=== PATIENT | female | born 1940 | race Caucasian/White ===

== ENCOUNTER 2016-09-22 12:22 | Emergency (ER) | payer MEDICARE ==
[2016-09-22 12:47] VITALS: PULSE 62
--- NOTE | 2016-09-22 14:30 | ED ---
General Adult HPI - General Chief complaint: Recheck/Abnormal Lab/Rx Stated complaint: Constipation Time Seen by Provider: 09/22/16 14:00 Source: patient, family, RN notes reviewed Mode of arrival: ambulatory Limitations: no limitations - History of Present Illness Initial comments: This is a 75-year-old female with a history of diverticulosis who presents with complaints of constipation for the last week. She states last time she had a bowel movement was very hard and small amounts. She also states she had no urine output from 9 PM last until just before I arrived to see her in the emergency department. She had no dysuria hematuria no urgency. No fevers chills sweats no abdominal pain. She states she had decreased oral intake today secondary to a fullness she feels for the constipation. She's had no prior abdominal surgeries. She voices no other concerns at this time but she does states that she was somewhat "woozy". - Related Data Home Medications Medication Instructions Recorded Confirmed Aspirin [Adult Low Dose Aspirin EC] 81 mg PO HS 07/28/15 09/22/16 Cholecalciferol [Vitamin D3] 2,000 unit PO DAILY 07/28/15 09/22/16 Fenofibric Acid (Choline) 135 mg PO DAILY 07/28/15 09/22/16 [Trilipix] amLODIPine BESYLATE [Norvasc] 5 mg PO HS 07/28/15 09/22/16 Atenolol [Tenormin] 50 mg PO DAILY 09/22/16 09/22/16 Levocetirizine Dihydrochloride 5 mg PO DAILY PRN 09/22/16 09/22/16 Multivitamins, Thera [Multivitamin] 1 tab PO DAILY 09/22/16 09/22/16 Naproxen Sodium [Aleve] 220 - 440 mg PO BID PRN 09/22/16 09/22/16 Allergies Allergy/AdvReac Type Severity Reaction Status Date / Time ciprofloxacin [From Cipro] Allergy Swelling Verified 09/22/16 13:18 ciprofloxacin HCl Allergy Swelling Verified 09/22/16 13:18 [From Cipro] ezetimibe [From Vytorin] Allergy Unknown Verified 09/22/16 13:18 iodine Allergy Unknown Verified 09/22/16 13:18 latex Allergy red skin Verified 09/22/16 13:18 Penicillins Allergy Rash/Hives Verified 09/22/16 13:18 Quinolones Allergy Unknown Verified 09/22/16 13:18 simvastatin [From Vytorin] Allergy Unknown Verified 09/22/16 13:18 Sulfa (Sulfonamide Allergy Itching Verified 09/22/16 13:18 Antibiotics) codeine AdvReac Nausea & Verified 09/22/16 13:18 Vomiting & Diarrhea bandaid Allergy Unknown Uncoded 09/22/16 12:47 Review of Systems ROS Statement: Those systems with pertinent positive or pertinent negative responses have been documented in the HPI. ROS Other: All systems not noted in ROS Statement are negative. Past Medical History Past Medical History: COPD, Hyperlipidemia, Hypertension Additional Past Medical History / Comment(s): vertigo, arthritis History of Any Multi-Drug Resistant Organisms: None Reported Past Surgical History: Appendectomy, Back Surgery, Cholecystectomy, Hysterectomy Additional Past Surgical History / Comment(s): benign cyst Past Psychological History: No Psychological Hx Reported Smoking Status: Former smoker Past Alcohol Use History: None Reported Past Drug Use History: None Reported General Exam - General Exam Comments Initial Comments: This is a well-developed well-nourished awake alert oriented 3 female Limitations: no limitations General appearance: alert, in no apparent distress ENT exam: Present: mucous membranes dry Rectal exam: Present: normal inspection, other (Mall amount of hard stool is present no evidence of any fissures some remnant hemorrhoids with no bleeding or inflammation. The Hemoccult is pending though it was brown colored stool) Course Vital Signs 09/22/16 09/22/16 12:44 15:49 Temperature 97.8 F 97.7 F Pulse Rate 62 Respiratory 20 Rate Blood Pressure 139/82 O2 Sat by Pulse 98 Oximetry Medical Decision Making - Medical Decision Making Patient he gets results from the enema. She will be discharged home I did recommend increase her oral fluids and to try for one or 2 more days he stool softener she has a home she is follow-up with her doctor and return when necessary - Lab Data Lab Results 09/22/16 09/22/16 Range/Units 14:06 14:30 Urine Color Yellow Urine Appearance Clear (Clear) Urine pH 6.0 (5.0-8.0) Ur Specific [place] 1.019 (1.001-1.035) Urine Protein Negative (Negative) Urine Glucose (UA) Negative (Negative) Urine Ketones Negative (Negative) Urine Blood Negative (Negative) Urine Nitrate Negative (Negative) Urine Bilirubin Negative (Negative) Urine Urobilinogen <2.0 (<2.0) mg/dL Ur Leukocyte Esterase Trace H (Negative) Urine RBC 2 (0-5) /hpf Urine WBC 9 H (0-5) /hpf Ur Squamous Epith Cells 2 (0-4) /hpf Amorphous Sediment Occasional H (None) /hpf Urine Mucus Few H (None) /hpf Stool Occult Blood Negative (Negative) - Radiology Data Radiology results: report reviewed (I did review the x-ray report no acute findings), image reviewed Disposition Clinical Impression: Constipation Disposition: HOME SELF-CARE Condition: Good Instructions: Constipation (ED), High Fiber Diet (ED), Fleet Enema (ED)
[2016-09-22 14:47] LABS: Amorphous Sediment,Urine Occasional /hpf; Appearance,Urine Clear (Clear); Bilirubin,Urine Negative (Negative); Glucose,Urine (UA) Negative (Negative); Ketones,Urine Negative (Negative); Leukocyte Esterase,Urine Trace (Negative); Mucus,Urine Few /hpf; Nitrite,Urine Negative (Negative); Particle Count 4715; Protein,Urine Negative (Negative); RBC,Urine 2 /hpf (0-5); Specific Gravity,Urine 1.019 (1.001-1.035); Squamous Epithelial Cell,Urine 2 /hpf (0-4); UA Billing (MACRO vs. MICRO) MICRO; Urobilinogen,Urine <2.0 mg/dL (<2.0); WBC,Urine 9 /hpf (0-5)
--- NOTE | 2016-09-22 15:09 | XR ---
2 view abdomen HISTORY: Unable to urinate, constipation 2 views of the abdomen submitted on 3 images and correlated to prior abdomen November, ches t x-ray 2016 Surgical clips in the right upper quadrant, scoliotic curvature of the spine again noted. Lung bases are clear. Heart size is increased. No bowel obstruction or pneumoperitoneum is evident. Calcificatio ns again noted in the upper abdomen are stable. T11-12 level shows some sclerosis which may be relate d to degenerative change but is indeterminate. Vascular calcifications are within the pelvis. IMPRESSION: Nonspecific bowel gas pattern, there may be an underlying ileus. Cardiomegaly. Additional findings above.
[2016-09-22] MEDS ORDERED: NA PHOS,M-B/NA PHOS,DI-BA 133 ML ENEMA RECTAL STA ×2 (15:11→15:13)
[2016-09-22 16:22] VITALS: BP 189/80; RESP 16; TEMP 97.8
== END 2016-09-22 16:32 | disposition home or self-care (01) ==
LOC: EC 12:22
DX: K59.00 Constipation, unspecified (principal); Z79.82 Long term (current) use of aspirin; I10 Essential (primary) hypertension; Z79.899 Other long term (current) drug therapy; Z91.040 Latex allergy status; Z88.0 Allergy status to penicillin; Z88.2 Allergy status to sulfonamides; Z88.8 Allergy status to other drugs, medicaments and biological substances; Z88.1 Allergy status to other antibiotic agents; Z87.891 Personal history of nicotine dependence
CPT/HCPCS: 36415; 51798; 74020; 81001; 82272; 99283

== ENCOUNTER 2017-09-18 08:02 | Emergency (ER) | payer MEDICARE ==
[2017-09-18 08:07] VITALS: TEMP 97.5
--- NOTE | 2017-09-18 08:23 | ED ---
General Adult HPI - General Chief complaint: Urogenital Stated complaint: UTI Time Seen by Provider: 09/18/17 08:18 Source: patient, RN notes reviewed Mode of arrival: ambulatory Limitations: no limitations - History of Present Illness Initial comments: Patient 76-year-old female who presents emergency room today with some hematuria off and on over the last 3 weeks. Also admits that she's had some pain over the bladder. She states some mild discomfort. She states does not seem to be worse with voiding. Patient denies any other complaints or symptoms. Patient denies any recent fever, chills, shortness of breath, chest pain, back pain, nausea or vomiting, numbness or tingling, dysuria, constipation or diarrhea, headaches or visual changes, or any other complaints. - Related Data Home Medications Medication Instructions Recorded Confirmed Aspirin [Adult Low Dose Aspirin EC] 81 mg PO HS 07/28/15 09/22/16 Cholecalciferol [Vitamin D3] 2,000 unit PO DAILY 07/28/15 09/22/16 Fenofibric Acid (Choline) 135 mg PO DAILY 07/28/15 09/22/16 [Trilipix] amLODIPine BESYLATE [Norvasc] 5 mg PO HS 07/28/15 09/22/16 Atenolol [Tenormin] 50 mg PO DAILY 09/22/16 09/22/16 Levocetirizine Dihydrochloride 5 mg PO DAILY PRN 09/22/16 09/22/16 Multivitamins, Thera [Multivitamin] 1 tab PO DAILY 09/22/16 09/22/16 Naproxen Sodium [Aleve] 220 - 440 mg PO BID PRN 09/22/16 09/22/16 Previous Rx's Medication Instructions Recorded Nitrofurantoin Monohyd/M-Cryst 100 mg PO Q12HR #14 cap 09/18/17 [Macrobid] Allergies Allergy/AdvReac Type Severity Reaction Status Date / Time ciprofloxacin [From Cipro] Allergy Swelling Verified 09/18/17 09:01 ciprofloxacin HCl Allergy Swelling Verified 09/18/17 09:01 [From Cipro] ezetimibe [From Vytorin] Allergy Unknown Verified 09/18/17 09:01 iodine Allergy Unknown Verified 09/18/17 09:01 latex Allergy red skin Verified 09/18/17 09:01 Penicillins Allergy Rash/Hives Verified 09/18/17 09:01 Quinolones Allergy Unknown Verified 09/18/17 09:01 simvastatin [From Vytorin] Allergy Unknown Verified 09/18/17 09:01 Sulfa (Sulfonamide Allergy Itching Verified 09/18/17 09:01 Antibiotics) codeine AdvReac Nausea & Verified 09/18/17 09:01 Vomiting & Diarrhea bandaid Allergy Unknown Uncoded 09/18/17 08:08 Review of Systems ROS Statement: Those systems with pertinent positive or pertinent negative responses have been documented in the HPI. ROS Other: All systems not noted in ROS Statement are negative. Past Medical History Past Medical History: COPD, Hyperlipidemia, Hypertension Additional Past Medical History / Comment(s): vertigo, arthritis, kidney stones History of Any Multi-Drug Resistant Organisms: None Reported Past Surgical History: Appendectomy, Back Surgery, Cholecystectomy, Hysterectomy Additional Past Surgical History / Comment(s): benign cyst Past Psychological History: Anxiety Smoking Status: Former smoker Past Alcohol Use History: None Reported Past Drug Use History: None Reported General Exam - General Exam Comments Initial Comments: General: The patient is awake and alert, in no distress, and does not appear acutely ill. Eye: Pupils are equal, round and reactive to light, extra-ocular movements are intact. No nystagmus. There is normal conjunctiva bilaterally. No signs of icterus. Ears, nose, mouth and throat: There are moist mucous membranes and no oral lesions. Neck: The neck is supple, there is no tenderness or JVD. Cardiovascular: There is a regular rate and rhythm. No murmur, rub or gallop is appreciated. Respiratory: Lungs are clear to auscultation, respirations are non-labored, breath sounds are equal. No wheezes, stridor, rales, or rhonchi. Gastrointestinal: The abdomen. Normal bowel sounds. Soft on palpation. Patient does have mild tenderness over midline over the bladder. No rebound tenderness. No guarding. No CVA tenderness. Musculoskeletal: Normal ROM, no tenderness. Strength 5/5. Sensation intact. Pulses equal bilaterally 2+. Neurological: A&O x 3. CN II-XII intact, There are no obvious motor or sensory deficits. Coordination appears grossly intact. Speech is normal. Skin: Skin is warm and dry and no rashes or lesions are noted. Psychiatric: Cooperative, appropriate mood & affect, normal judgment. Limitations: no limitations Course Vital Signs 09/18/17 09/18/17 08:04 08:53 Temperature 97.5 F L Pulse Rate 79 76 Respiratory 18 16 Rate Blood Pressure 190/84 181/74 O2 Sat by Pulse 98 98 Oximetry Medical Decision Making - Medical Decision Making Patient's labs been reviewed and are unremarkable. Patient's urinalysis does show evidence for a urinary tract infection. Patient will be started on Macrobid. She is advised to follow-up the family doctor to have repeat urinalysis this coming week. Advised return to emergency room if any symptoms increase or worsen or for any other concerns. - Lab Data Result diagrams: 09/18/17 08:30 09/18/17 08:30 Lab Results 09/18/17 09/18/17 09/18/17 Range/Units 08:30 08:30 08:30 WBC 7.4 (3.8-10.6) k/uL RBC 4.65 (3.80-5.40) m/uL Hgb 13.9 (11.4-16.0) gm/dL Hct 42.7 (34.0-46.0) % MCV 91.6 (80.0-100.0) fL MCH 29.9 (25.0-35.0) pg MCHC 32.6 (31.0-37.0) g/dL RDW 12.4 (11.5-15.5) % Plt Count 279 (150-450) k/uL Neutrophils % 77 % Lymphocytes % 12 % Monocytes % 4 % Eosinophils % 4 % Basophils % 0 % Neutrophils # 5.7 (1.3-7.7) k/uL Lymphocytes # 0.9 L (1.0-4.8) k/uL Monocytes # 0.3 (0-1.0) k/uL Eosinophils # 0.3 (0-0.7) k/uL Basophils # 0.0 (0-0.2) k/uL Sodium 142 (137-145) mmol/L Potassium 3.9 (3.5-5.1) mmol/L Chloride 104 (98-107) mmol/L Carbon Dioxide 29 (22-30) mmol/L Anion Gap 9 mmol/L BUN 16 (7-17) mg/dL Creatinine 0.68 (0.52-1.04) mg/dL Est GFR (MDRD) Af Amer >60 (>60 ml/min/1.73 sqM) Est GFR (MDRD) Non-Af >60 (>60 ml/min/1.73 sqM) Glucose 104 H (74-99) mg/dL Calcium 10.3 H (8.4-10.2) mg/dL Total Bilirubin 0.6 (0.2-1.3) mg/dL AST 21 (14-36) U/L ALT 19 (9-52) U/L Alkaline Phosphatase 55 (38-126) U/L Total Protein 6.8 (6.3-8.2) g/dL Albumin 4.1 (3.5-5.0) g/dL Urine Color Light Red Urine Appearance Cloudy H (Clear) Urine pH 7.5 (5.0-8.0) Ur Specific [place] 1.012 (1.001-1.035) Urine Protein 1+ H (Negative) Urine Glucose (UA) Negative (Negative) Urine Ketones Negative (Negative) Urine Blood Large H (Negative) Urine Nitrite Negative (Negative) Urine Bilirubin Negative (Negative) Urine Urobilinogen <2.0 (<2.0) mg/dL Ur Leukocyte Esterase Large H (Negative) Urine RBC >182 H (0-5) /hpf Urine WBC 133 H (0-5) /hpf Disposition Clinical Impression: UTI (urinary tract infection) Disposition: HOME SELF-CARE Condition: Good Instructions: Urinary Tract Infection in Women (ED) Additional Instructions: Please follow-up the family doctor this coming week for repeat urinalysis as discussed. Please use antibiotic as prescribed. Please return to emergency room for any symptoms increase or worsen or for any other concerns. Prescriptions: Nitrofurantoin Monohyd/M-Cryst [Macrobid] 100 mg PO Q12HR #14 cap Referrals: Oral Shepard MD [Primary Care Provider] - 1-2 days Time of Disposition: 09:15
[2017-09-18 08:44] LABS: Basophils % (A) 0 %; Eosinophils # (A) 0.3 k/uL (0-0.7); Eosinophils % (A) 4 %; HCT 42.7 % (34.0-46.0); HGB 13.9 gm/dL (11.4-16.0); Lymphocytes # (A) 0.9 k/uL (1.0-4.8); Lymphocytes % (A) 12 %; MCH 29.9 pg (25.0-35.0); MCHC 32.6 g/dL (31.0-37.0); MCV 91.6 fL (80.0-100.0); Mean Platelet Volume 6.9; Monocytes # (A) 0.3 k/uL (0-1.0); Monocytes % (A) 4 %; Neutrophils # (A) 5.7 k/uL (1.3-7.7); Neutrophils % (A) 77 %; Platelet Count 279 k/uL (150-450); RBC 4.65 m/uL (3.80-5.40); RDW 12.4 % (11.5-15.5); WBC 7.4 k/uL (3.8-10.6)
[2017-09-18 08:55] VITALS: BP 181/74; PULSE 76; RESP 16
[2017-09-18 08:58] LABS: Appearance,Urine Cloudy (Clear); Bilirubin,Urine Negative (Negative); Blood,Urine Large (Negative); Color,Urine Light Red; Glucose,Urine (UA) Negative (Negative); Ketones,Urine Negative (Negative); Leukocyte Esterase,Urine Large (Negative); Nitrite,Urine Negative (Negative); PH, Urine 7.5 (5.0-8.0); Protein,Urine 1+ (Negative); RBC,Urine >182 /hpf (0-5); Specific Gravity,Urine 1.012 (1.001-1.035); Urobilinogen,Urine <2.0 mg/dL (<2.0); WBC,Urine 133 /hpf (0-5)
[2017-09-18 08:59] LABS: ALT 19 U/L (9-52); AST 21 U/L (14-36); Albumin 4.1 g/dL (3.5-5.0); Alkaline Phosphatase 55 U/L (38-126); Anion Gap 9 mmol/L; Blood Urea Nitrogen 16 mg/dL (7-17); Calcium 10.3 mg/dL (8.4-10.2); Carbon Dioxide 29 mmol/L (22-30); Chloride 104 mmol/L (98-107); Glucose 104 mg/dL (74-99); Potassium 3.9 mmol/L (3.5-5.1); Sodium 142 mmol/L (137-145); Total Bilirubin 0.6 mg/dL (0.2-1.3); Total Protein 6.8 g/dL (6.3-8.2)
--- NOTE | 2017-09-18 09:52 | XR ---
EXAMINATION TYPE: XR KUB , ONE VIEW DATE OF EXAM ORDERED: 09/18/2017 HISTORY: pain. COMPARISON: Previous study dated 12/16/2011. FINDINGS: There has been a previous cholecystectomy. There is a moderate S-shaped scoliosis convex to the left at the thoracic lumbar junction and to the right in the lumbar region. The lung bases are clear. Within the abdomen, the abdominal gas pattern is normal. There is no evidence of obstruction or free air. There are phleboliths within the pelvis. IMPRESSION: NO ACUTE INTRA-ABDOMINAL ABNORMALITY.
== END 2017-09-18 09:22 | disposition home or self-care (01) ==
LOC: EC 08:02
DX: N39.0 Urinary tract infection, site not specified (principal); E78.5 Hyperlipidemia, unspecified; I10 Essential (primary) hypertension; M19.90 Unspecified osteoarthritis, unspecified site; Z87.891 Personal history of nicotine dependence; Z79.82 Long term (current) use of aspirin; Z79.899 Other long term (current) drug therapy; Z88.0 Allergy status to penicillin; Z88.1 Allergy status to other antibiotic agents; Z88.2 Allergy status to sulfonamides; Z88.5 Allergy status to narcotic agent; Z88.8 Allergy status to other drugs, medicaments and biological substances; Z91.040 Latex allergy status; Z91.048 Other nonmedicinal substance allergy status
CPT/HCPCS: 36415; 74018; 80053; 81001; 85025; 87077; 87086; 87186; 99283

== ENCOUNTER → 2017-11-11 | Outpatient (CLI) | payer MEDICARE ==
--- NOTE | 2017-11-11 12:43 | XR ---
EXAMINATION TYPE: XR abdomen 2V DATE OF EXAM: 11/11/2017 COMPARISON: 09/18/2017 HISTORY: Pain TECHNIQUE: One view abdominal series FINDINGS: The osseous structures are intact. The bowel gas pattern is nonspecific. Nodular density at the righ t lung base. Previous gallbladder surgery noted. Scoliosis and degenerative change of the spine noted . Calcifications in the pelvis appear vascular. Arthropathy of the hips noted. Smaller calcified nodu le suggestive lung the lateral margin of the left lower lobe.. IMPRESSION: 1. Nonspecific abdomen. 2. There is a right lower lobe pulmonary nodule which is increased in size compared to 2012. Recommen d CT scan of the chest.
== END | disposition home or self-care (01) ==
LOC: RADXRMAIN 12:16
PROVIDERS: ATTEND Family Medicine
DX: K59.00 Constipation, unspecified (principal)
CPT/HCPCS: 74019

== ENCOUNTER → 2017-11-15 | Outpatient (CLI) | payer MEDICARE ==
--- NOTE | 2017-11-15 09:11 | XR ---
EXAMINATION TYPE: XR abdomen 2V DATE OF EXAM: 11/15/2017 COMPARISON: NONE HISTORY: History of constipation TECHNIQUE: One view abdominal series FINDINGS: The osseous structures are intact. The bowel gas pattern is nonspecific. Lung bases are clear. Curv ature the spine noted with a right lower lobe pulmonary nodule. Measures approximately 1.7 cm. Surgic al clips in the gallbladder fossa noted. Arthropathy of the hips noted. Calcifications in the pelvis noted. IMPRESSION: 1. Nonspecific abdomen. No diagnostic evidence of obstruction. 2. There is a right lower lobe 1.7 cm pulmonary nodule. Recommend CT chest.
--- NOTE | 2017-11-15 09:13 | XR ---
EXAMINATION TYPE: XR chest 2V DATE OF EXAM: 11/15/2017 COMPARISON: 06/05/2016 TECHNIQUE: PA and lateral views submitted. HISTORY: Left-sided chest pain FINDINGS: The lungs are clear and there is no pneumothorax, pleural effusion, or focal pneumonia. There is a 1.7 cm pulmonary mass right lower lobe. Linear density left lung more likely related atelectasis or s car. Small nodule also suspected measuring approximately 5-7 mm. No overt failure. No pneumothorax. IMPRESSION: 1. Right lower lobe pulmonary nodule measuring 1.7 cm. 2. Left lower lobe pulmonary nodule measuring 5 to 7 mm..
== END | disposition home or self-care (01) ==
LOC: RADXRMAIN 08:21
PROVIDERS: ATTEND Family Medicine
DX: K59.00 Constipation, unspecified (principal); R91.8 Other nonspecific abnormal finding of lung field
CPT/HCPCS: 71046; 74019

== ENCOUNTER → 2017-11-28 | Outpatient (CLI) | payer MEDICARE ==
[2017-11-28 10:22] LABS: Blood Urea Nitrogen 21 mg/dL (7-17)
--- NOTE | 2017-11-28 13:11 | CT ---
EXAMINATION TYPE: CT chest w con DATE OF EXAM: 11/28/2017 COMPARISON: Chest x-ray 11/15/[address] scan abdomen and pelvis 11/10/2011 HISTORY: Multiple lung nodules CT DLP: 566 mGycm Automated exposure control for dose reduction was used. CONTRAST: CT scan of the chest is performed with IV Contrast, patient injected with 100 mL of Isovue 300. FINDINGS: LUNGS: The lungs are remarkable for fat density right lower lobe nodule which is stable and measures approximately 17 mm, possibly hamartoma, there is no concerning parenchymal mass or nodule identified . Scarring persists in the lingula and is stable. 1 mm nodule present on axial image 34 right lower l obe posterior laterally may shows central calcification There is no pleural effusion or pneumothorax seen. The tracheobronchial tree is patent. MEDIASTINUM: There are no greater than 1 cm hilar or mediastinal lymph nodes. No pericardial effusi on is seen. AORTA: No additional significant abnormality is seen. OTHER: Possible calcified focus within the spleen as on prior. IMPRESSION: Stable benign nodules right lower lobe, possible old granulomatous disease
== END | disposition home or self-care (01) ==
LOC: RADCTMAIN 11-24 09:44
PROVIDERS: ATTEND Physician Assistant
DX: R91.8 Other nonspecific abnormal finding of lung field (principal); Z88.1 Allergy status to other antibiotic agents; Z88.0 Allergy status to penicillin; Z88.2 Allergy status to sulfonamides; Z88.5 Allergy status to narcotic agent
CPT/HCPCS: 82565; 84520; 71260; 36415; Q9967

== ENCOUNTER → 2018-01-19 | Outpatient (CLI) | payer MEDICARE ==
[~2018-01-19] MED LIST: REGADENOSON 0.4 MG/5 ML SYRINGE IV ONE
--- NOTE | 2018-01-19 13:23 | EST ---
EXERCISE STRESS DATE OF SERVICE: 01/19/2018 AGE: 77 SEX: Female HT: 63" WT: 175 pounds PROTOCOL: Lexiscan Cardiolite STAGE: DURATION OF EXERCISE: HEART RATE REST: 70 BLOOD PRESSURE REST: 171/75 MAXIMUM HEART RATE ACHIEVED: 109 MAXIMUM BLOOD PRESSURE: 180/72 85% MPHR: 100% MPHR: METS: INDICATIONS: CLINICAL INFORMATION: Baseline rhythm is sinus mechanism, rate of 70. Normal axis and intervals. Minor nonspecific ST-T wave changes. Baseline blood pressure 171/75 mmHg. Patient received an injection of Lexiscan. Electrocardiograph monitoring revealed no evidence of diagnostic ischemic ST deviation. Cardiolite was injected per protocol. CONCLUSION: 1. Nondiagnostic electrocardiograph stress testing. 2. Nuclear images will be reported separately. MMODL / IJN: [id number] /
--- NOTE | 2018-01-19 14:45 | NM ---
EXAMINATION TYPE: NM stress lexiscan cardiolite DATE OF EXAM: 01/19/2018 COMPARISON: NONE HISTORY: Hypertension, abnormal EKG TECHNIQUE: After the intravenous administration of 10.14 mCi Tc 99m Sestamibi - Cardiolite resting S PECT images acquired 45 minutes post injection. The patient received 0.4mg Lexiscan, 27.1 mCi Tc 99m Sestamibi - Stress images obtained [address] injection FINDINGS: Review of stress and rest SPECT images demonstrates no distinct perfusion abnormality. Gated analysi s shows normal wall motion with an estimated left ventricular ejection fraction of 69 %. IMPRESSION: No scintigraphic evidence for reversible ischemia. Consider echocardiographic correlation for elevate d ejection fraction
--- NOTE | 2018-01-19 19:32 | ECHOF ---
Referral Reason:I10 Hypertension,R94.31 Abnormal EKG MEASUREMENTS -------- HEIGHT: 165.1 cm WEIGHT: 79.4 kg BP: IVSd: 1.3 cm (0.6 - 1.1) LVIDd: 3.3 cm (3.9 - 5.3) LVPWd: 1.6 cm (0.6 - 1.1) IVSs: 1.4 cm LVIDs: 2.0 cm LVPWs: 2.4 cm LAESV Index (A-L): 25.96 ml/m Ao Diam: 2.8 cm (2.0 - 3.7) AV Cusp: 1.7 cm (1.5 - 2.6) LA Diam: 3.1 cm (2.7 - 3.8) MV EXCURSION: 15.965 mm (> 18.000) MV EF SLOPE: 134 mm/s (70 - 150) EPSS: 1.2 cm MV E Bill: 0.86 m/s MV DecT: 192 ms MV A Bill: 1.14 m/s MV E/A Ratio: 0.75 RAP: 5.00 mmHg RVSP: 21.52 mmHg FINDINGS -------- Sinus rhythm. This was a technically good study. The left ventricular size is normal. There is moderate concentric left ventricular hypertrophy. O verall left ventricular systolic function is normal with, an EF between 55 - 60 %. The right ventricle is normal in size and function. The left atrium is normal in size. The right atrium is normal in size. There is mild aortic valve sclerosis. The mitral valve leaflets are mildly thickened. Mild mitral regurgitation is present. Trace tricuspid regurgitation present. The right ventricular systolic pressure, as measured by Dopp ler, is 21.52mmHg. There is no pulmonic regurgitation present. The aortic root size is normal. Normal inferior vena cava with normal inspiratory collapse consistent with estimated right atrial pre ssure of 5 mmHg. There is a trivial pericardial effusion present. CONCLUSIONS -------- 1. Sinus rhythm. 2. This was a technically good study. 3. The left ventricular size is normal. 4. There is moderate concentric left ventricular hypertrophy. 5. Overall left ventricular systolic function is normal with, an EF between 55 - 60 %. 6. The left atrium is normal in size. 7. There is mild aortic valve sclerosis. 8. The mitral valve leaflets are mildly thickened. 9. Mild mitral regurgitation is present. 10. Trace tricuspid regurgitation present. 11. The right ventricular systolic pressure, as measured by Doppler, is 21.52mmHg. 12. There is no pulmonic regurgitation present. 13. The aortic root size is normal. 14. Normal inferior vena cava with normal inspiratory collapse consistent with estimated right atrial pressure of 5 mmHg. 15. There is a trivial pericardial effusion present. COMPUTER PROGRAMMER: Caterina Munoz RDCS
== END | disposition home or self-care (01) ==
LOC: RADNMMAIN 07:47
PROVIDERS: ATTEND Family Medicine
DX: I08.0 Rheumatic disorders of both mitral and aortic valves (principal); I10 Essential (primary) hypertension
CPT/HCPCS: 93017; 93306; 78452; A9500; J2785

== ENCOUNTER → 2018-10-05 | Outpatient (CLI) | payer MEDICARE ==
--- NOTE | 2018-10-06 12:10 | MM ---
Reason for exam: screening (asymptomatic). Last mammogram was performed 1 year and 2 months ago. History: Patient is postmenopausal. Family history of premenopausal breast cancer in sister at age 40. Benign core biopsy of the right breast, January 31, 1997. Cyst aspiration of the left breast. Core biopsy of the left breast. Core biopsy of the right breast. 2 excisional biopsies of the left breast. Excisional biopsy of the right breast. Took estrogen for 5 years beginning at age 39. Took progesterone for 5 years beginning at age 39. Physical Findings: A clinical breast exam by your physician is recommended on an annual basis and results should be correlated with mammographic findings. MG 3D Screening Mammo W/Cad Bilateral CC and MLO view(s) were taken. Prior study comparison: July 27, 2017, bilateral MG 3d screening mammo w/cad. March 28, 2015, bilateral MG screening mammo w CAD. There are scattered fibroglandular densities. Finding: There is a typically benign equal density (isodense), circumscribed round mass located 6 cm from the nipple in the 9 o'clock position of the right breast. Focal asymmetry in the left breast is stable. New finding since July 27, 2017. ASSESSMENT: Incomplete: need additional imaging evaluation, BI-RAD 0 RECOMMENDATION: Ultrasound of the right breast. [facility] will attempt to contact patient to return for ultrasound.
== END | disposition home or self-care (01) ==
LOC: RADMAMWWP 13:00
PROVIDERS: ATTEND Family Medicine
DX: Z12.31 Encounter for screening mammogram for malignant neoplasm of breast (principal)
CPT/HCPCS: 77063; 77067

== ENCOUNTER → 2018-10-19 | Outpatient (CLI) | payer MEDICARE ==
--- NOTE | 2018-10-19 11:28 | USB ---
Reason for exam: additional evaluation requested from abnormal screening. History: Patient is postmenopausal. Family history of premenopausal breast cancer in sister at age 40. Benign core biopsy of the right breast, January 31, 1997. Cyst aspiration of the left breast. Core biopsy of the left breast. Core biopsy of the right breast. 2 excisional biopsies of the left breast. Excisional biopsy of the right breast. Took estrogen for 5 years beginning at age 39. Took progesterone for 5 years beginning at age 39. Physical Findings: Nurse did not find any significant physical abnormalities on exam. US Breast Workup Limited RT Right limited breast ultrasound including focal area of concern, retroareolar and axilla demonstrates duct ectasia at 10 o'clock and posterior nipple and three oval, hyperechoic lesions, probable lipomas at 10 o'clock measuring 0.7 x 0.8 x 0.5cm, 0.3 x 0.3 x 0.2cm at 10 o'clock and 0.4 x 0.7 x 0.5cm. These results were verbally communicated with the patient and result sheet given to the patient on 10/19/18. ASSESSMENT: Probably benign, BI-RAD 3 RECOMMENDATION: Follow-up diagnostic mammogram and ultrasound of the right breast in 6 months.
== END | disposition home or self-care (01) ==
LOC: RADUSWWP 10:02
PROVIDERS: ATTEND Family Medicine
DX: R92.8 Other abnormal and inconclusive findings on diagnostic imaging of breast (principal)

== ENCOUNTER → 2019-03-20 | Outpatient (CLI) | payer MEDICARE ==
--- NOTE | 2019-03-21 09:41 | MM ---
Reason for exam: additional evaluation requested from abnormal screening. Last mammogram was performed 6 months ago. History: Patient is postmenopausal. Family history of premenopausal breast cancer in sister at age 40. Benign core biopsy of the right breast, January 31, 1997. Cyst aspiration of the left breast. Core biopsy of the left breast. Core biopsy of the right breast. 2 excisional biopsies of the left breast. Excisional biopsy of the right breast. Took estrogen for 5 years beginning at age 39. Took progesterone for 5 years beginning at age 39. Physical Findings: Nurse did not find any significant physical abnormalities on exam. (nurse ). MG 3D Diag Mammo W/Cad RT CC, MLO, ML, spot compression CC, and spot compression MLO view(s) were taken of the right breast. Prior study comparison: October 05, 2018, bilateral MG 3d screening mammo w/cad. July 27, 2017, bilateral MG 3d screening mammo w/cad. There are scattered fibroglandular densities. There are benign-appearing right breast calcifications. No new suspicious abnormality. ASSESSMENT: Probably benign, BI-RAD 3 RECOMMENDATION: Follow-up diagnostic mammogram of both breasts in 6 months. To include special views of the right breast. Patient will be due for her left breast at that time.
--- NOTE | 2019-03-21 09:49 | USB ---
History: Patient is postmenopausal. Family history of premenopausal breast cancer in sister at age 40. Benign core biopsy of the right breast, January 31, 1997. Cyst aspiration of the left breast. Core biopsy of the left breast. Core biopsy of the right breast. 2 excisional biopsies of the left breast. Excisional biopsy of the right breast. Took estrogen for 5 years beginning at age 39. Took progesterone for 5 years beginning at age 39. US Breast Limited RT Right limited breast ultrasound including focal area of concern, retroareolar and axilla demonstrates Multiple lipomas seen . A 0.5 x 0.7 x 0.6 cm solid hyperechoic lipoma at 10 o'clock which measured 0.7 x 0.8 x 0.5 on prior study. And smaller similar lipomas compared to prior exams. ASSESSMENT: Benign, BI-RAD 2 RECOMMENDATION: Return to routine screening mammogram schedule for both breasts. Pt given results on 03/20/19
== END ==
LOC: RADMAMWWP 13:25
PROVIDERS: ATTEND Family Medicine
DX: R92.8 Other abnormal and inconclusive findings on diagnostic imaging of breast (principal)
CPT/HCPCS: 77065; 76642; G0279; 77061

== ENCOUNTER → 2019-04-24 | Outpatient (CLI) | payer MEDICARE ==
--- NOTE | 2019-04-24 12:12 | XR ---
EXAM TYPE: LUMBAR SPINE X RAY SERIES COMPARISON: NONE HISTORY: Pain TECHNIQUE: 4 views are submitted. FINDINGS: Alignment is anatomic. The pedicles are intact. The transverse processes are intact. There is curv ature the spine with multilevel hypertrophic and degenerative changes. Multilevel facet arthropathy n oted. Vascular calcifications are noted. Scoliotic curvature the spine. Surgical clips in the right u pper quadrant. IMPRESSION: 1. Multilevel degenerative changes and facet arthropathy. Correlate with MRI.
--- NOTE | 2019-04-24 12:13 | XR ---
EXAMINATION TYPE: XR Hip Bilateral and AP pelvis DATE OF EXAM: 04/24/2019 COMPARISON: NONE HISTORY: Pain TECHNIQUE: A single AP view of the pelvis is obtained. Two views of the bilateral hip are obtained. FINDINGS: There is no acute fracture/dislocation evident in the pelvis. The hip and sacroiliac join ts appear symmetric and unremarkable. The overlying soft tissue appears unremarkable. Two views of bilateral hip show no acute fracture or dislocation. No focal lytic or sclerotic lesion seen in the proximal bilateral femur. The overlying soft tissue is unremarkable. There is a concen tric narrowing of the joint space. Vascular calcifications noted. Spur overlying the greater trochant er of the left hip. IMPRESSION: 1. Bilateral arthropathy. Spur overlying the greater trochanter of the left hip can be associated wit h trochanteric bursitis.
== END | disposition home or self-care (01) ==
LOC: RADXRMAIN 11:29
PROVIDERS: ATTEND Family Medicine
DX: M47.816 Spondylosis without myelopathy or radiculopathy, lumbar region (principal); M46.96 Unspecified inflammatory spondylopathy, lumbar region; M16.0 Bilateral primary osteoarthritis of hip
CPT/HCPCS: 72110; 73521

== ENCOUNTER → 2019-08-02 | Outpatient (CLI) | payer MEDICARE ==
--- NOTE | 2019-08-02 15:48 | BD ---
EXAMINATION TYPE: Axial Bone Density DATE OF EXAM: 08/02/2019 COMPARISON: 07.27.2017 CLINICAL HISTORY: 78 YR OLD FEMALE....ICD-10 CODE: Z78.0 POST MENOPAUSAL Height: 60.5 Weight: 173 FRAX RISK QUESTIONS: Glucocorticoids (More than 3mos): YES (Ex: prednisone, prednisolone, methylprednisolone, dexamethasone, and hydrocortisone). Secondary Osteoporosis: YES 3. Menopause before 45: YES, AT AGE 39 RISK FACTORS HISTORY OF: Surgery to Spine..LAMINECTOMY 40 YRS AGO, LUMBAR Postmenopausal woman: YES, AT AGE 39 YRS OLD, TOTAL HYST Lost more than 2 inches in height since high school: YES Frequent falls: UNSTEADY Hyperparathyroidism: NO Adrenal Insufficiency: NO MEDICATIONS: Prednisone or other steroids: INHALER FOR COPD, STEROIDAL TREATMENTS How Long: MANY YRS Additional Medications: BP MEDS, VIT D3, MULTIVITAMIN, STATIN FOR CHOLESTEROL, Additional History: HYPERTENSION, CHOLESTEROL, OSTEOARTHRITIS EXAM MEASUREMENTS: Bone mineral densitometry was performed using the [employer] System. LUMBAR LAMINECTOMY....SPINE NOT SCANNED Bone mineral density about the R hip (g/cm2): 0.983 Bone mineral density about the L hip (g/cm2): 1.077 T Score values are as follows: -----R Neck: -0.7 -----L Neck: 0.1 -----R Total: -0.2 -----L Total: 0.5 Bone mineral density has: Increased 5.9% since study of: 07.27.2017 FRAX%s: THERE IS A 15.0% CHANCE FOR A MAJOR OSTEOPOROTIC FX AND A 2.7% FOR HIP....PROBABILITY FOR F X IN 10 YRS TIME Bone mineral density about the L Wrist (g/cm2): 0.505 T Score values are as follows: -----Dist. R+U: -1.3 -----Prox. R+U: -2.0 -----Radius total: -2.7 Bone mineral density FIRST BONE DENSITY OF FOREARM IMPRESSION: Osteoporosis of the right wrist. NOTE: T-SCORE=SD OF THE YOUNG ADULT MEAN.
== END | disposition home or self-care (01) ==
LOC: RADBDWWP 14:02
PROVIDERS: ATTEND Family Medicine
DX: M81.8 Other osteoporosis without current pathological fracture (principal)
CPT/HCPCS: 77080

== ENCOUNTER → 2019-10-12 | Outpatient (CLI) | payer MEDICARE ==
--- NOTE | 2019-10-15 13:19 | MM ---
Reason for exam: screening (asymptomatic). Last mammogram was performed 7 months ago. History: Patient is postmenopausal. Family history of premenopausal breast cancer in sister at age 40. Benign core biopsy of the right breast, January 31, 1997. Cyst aspiration of the left breast. Core biopsy of the left breast. Core biopsy of the right breast. 2 excisional biopsies of the left breast. Excisional biopsy of the right breast. Took estrogen for 5 years beginning at age 39. Took progesterone for 5 years beginning at age 39. Physical Findings: A clinical breast exam by your physician is recommended on an annual basis and results should be correlated with mammographic findings. MG 3D Screening Mammo W/Cad Bilateral CC and MLO view(s) were taken. Prior study comparison: March 20, 2019, right breast MG 3d diag mammo w/cad RT. October 05, 2018, bilateral MG 3d screening mammo w/cad. There are scattered fibroglandular densities. Stable benign calcifications. There is no discrete abnormality. No significant changes when compared with prior studies. ASSESSMENT: Benign, BI-RAD 2 RECOMMENDATION: Routine screening mammogram of both breasts in 1 year.
== END | disposition home or self-care (01) ==
LOC: RADMAMWWP 13:10
PROVIDERS: ATTEND Family Medicine
DX: Z12.31 Encounter for screening mammogram for malignant neoplasm of breast (principal)
CPT/HCPCS: 77063; 77067

== ENCOUNTER 2019-10-31 07:00 | Day surgery (SDC) | payer MEDICARE ==
[2019-10-29 14:34] VITALS: BMI 31.6
[~2019-10-31 07:00] MED LIST changes: +LACTATED RINGERS 1,000 ML IV SCH; +LIDOCAINE 1% (10MG/ML) FOR IV START INTRADERMA PRN; -REGADENOSON 0.4 MG/5 ML SYRINGE IV ONE
[2019-10-31 07:51] VITALS: TEMP 98.2
[2019-10-31] MEDS ORDERED: LIDOCAINE 1% INJ 10MG/ML (20 ML MDV) ONE (08:11)
[2019-10-31] MEDS ORDERED: PROPOFOL 10 MG/ML 20 ML VIAL IV ONE (08:11)
--- NOTE | 2019-10-31 08:12 | P.GSHP ---
History of Present Illness H&P Date: 10/31/19 CHIEF COMPLAINT: Colon screen HISTORY OF PRESENT ILLNESS: The patient is a 79-year-old female who presents for colon screen. Lower endoscopy was offered for further evaluation and management. PAST MEDICAL HISTORY: Please see list. PAST SURGICAL HISTORY: Please see list. MEDICATIONS: Please see list. ALLERGIES: Please see list. SOCIAL HISTORY: No illicit drug use FAMILY HISTORY: No reports of Crohn disease or ulcerative colitis. REVIEW OF ORGAN SYSTEMS: CONSTITUTIONAL: No reports of fevers or chills. PHYSICAL EXAM: VITAL SIGNS: Stable GENERAL: Well-developed pleasant in no acute distress. HEENT: No scleral icterus. Extraocular movements grossly intact. Moist buccal mucosa. NECK: Supple without lymphadenopathy. CHEST: Unlabored respirations. Equal bilateral excursions. CARDIOVASCULAR: Regular rate and rhythm. Distal 2+ pulses. ABDOMEN: Soft, nontender, nondistended. MUSCULOSKELETAL: No clubbing, cyanosis, or edema. ASSESSMENT: 1. Colon screen. PLAN: 1. Recommend proceeding with a lower endoscopy Past Medical History Past Medical History: COPD, Hyperlipidemia, Hypertension, Pulmonary Embolus (PE) Additional Past Medical History / Comment(s): vertigo, arthritis, kidney stones History of Any Multi-Drug Resistant Organisms: None Reported Past Surgical History: Appendectomy, Back Surgery, Cholecystectomy, Hysterectomy Additional Past Surgical History / Comment(s): benign cyst from breast, fatty tumor removed lt shoulder Past Anesthesia/Blood Transfusion Reactions: No Reported Reaction Additional Past Anesthesia/Blood Transfusion Reaction / Comment(s): claustrophobic Smoking Status: Former smoker - Past Family History Sister(s) Family Medical History: Cancer Additional Family Medical History / Comment(s): breast cancer Medications and Allergies Home Medications Medication Instructions Recorded Confirmed Type Cholecalciferol [Vitamin D3] 2,000 unit PO DAILY 07/28/15 10/31/19 History Fenofibric Acid (Choline) 135 mg PO DAILY 07/28/15 10/31/19 History [Trilipix] Multivitamins, Thera [Multivitamin] 1 tab PO DAILY 09/22/16 10/31/19 History Metoprolol Tartrate [Lopressor] 50 mg PO BID 09/18/17 10/31/19 History Albuterol Inhaler [Ventolin Hfa 1 - 2 puff INHALATION RT-Q6H PRN 10/29/19 10/31/19 History Inhaler] Meloxicam 7.5 mg PO BID 10/29/19 10/31/19 History Tiotropium Br/Olodaterol HCl 2 puff INHALATION DAILY 10/29/19 10/31/19 History [Stiolto Respimat Inhal [place]] Allergies Allergy/AdvReac Type Severity Reaction Status Date / Time ciprofloxacin [From Cipro] Allergy Swelling Verified 10/31/19 07:37 ciprofloxacin HCl Allergy Swelling Verified 10/31/19 07:37 [From Cipro] ezetimibe [From Vytorin] Allergy Unknown Verified 10/31/19 07:37 iodine Allergy Unknown Verified 10/31/19 07:37 latex Allergy red skin Verified 10/31/19 07:37 Penicillins Allergy Rash/Hives Verified 10/31/19 07:37 Quinolones Allergy Unknown Verified 10/31/19 07:37 simvastatin [From Vytorin] Allergy Unknown Verified 10/31/19 07:37 Sulfa (Sulfonamide Allergy Itching Verified 10/31/19 07:37 Antibiotics) codeine AdvReac Nausea & Verified 10/31/19 07:37 Vomiting & Diarrhea bandaid Allergy Unknown Uncoded 10/31/19 07:37 Surgical - Exam Vital Signs Temp Pulse Resp BP Pulse Ox 98.2 F 70 18 189/77 98 10/31/19 07:40 10/31/19 07:40 10/31/19 07:40 10/31/19 07:40 10/31/19 07:40
--- NOTE | 2019-10-31 08:51 | P.PCN ---
Date of Procedure: 10/31/19 Description of Procedure: PREOPERATIVE DIAGNOSIS: Abnormal Cologaurd POSTOPERATIVE DIAGNOSIS: Abnormal Cologaurd Severe sigmoid diverticulosis Sigmoid stricture OPERATION: Flexible sigmoidoscopy to the sigmoid colon. SURGEON: Lorrie Carballo MD. ANESTHESIA: MAC. INDICATIONS: The patient is a 79-year-old male who presents with abnormal Cologaurd. Benefits and risks were described and informed consent was obtained. DESCRIPTION OF PROCEDURE: The patient had undergone bowel prep. She had been brought into the endoscopy room and laid in the left lateral decubitus position. After adequate intravenous sedation, the rectum was examined with 2% lidocaine jelly. No external hemorrhoids were encountered. The rectal tone was within normal limits. No lesions were palpated in the rectal vault. An Olympus colonoscope was advanced along the rectum to a complete obstructing lesion at the sigmoid colon at 20 cm from the anal verge. Moderate to severe sigmoid diverticulosis was encountered. Despite maneuvers, the pediatric colonoscope could not advance beyond sigmoid stricture at 20 cm from the anal verge. Internal hemorrhoids, grade 1 was found. The colonoscope was removed. The patient tolerated the procedure well Withdrawal time was over 6 minutes. FINDINGS: [place] preparation quality scale 2 (1-5) External prolapsed hemorrhoids. Scope advanced to the sigmoid colon. Sigmoid stricture at 20 cm from the anal verge from diverticulosis RECOMMENDATIONS: 1. Patient reports inability to tolerate any prior barium enema 2. Incomplete colonoscopy including abnormal Cologaurd, recommend CT colonography/virtual colonoscopy Plan - Discharge Summary Discharge Rx Participant: No New Discharge Prescriptions: Continue Fenofibric Acid (Choline) [Trilipix] 135 mg PO DAILY Cholecalciferol [Vitamin D3 (25 Mcg = 1000 Iu)] 2,000 unit PO DAILY Multivitamins, Thera [Multivitamin (formulary)] 1 tab PO DAILY Metoprolol Tartrate [Lopressor] 50 mg PO BID Meloxicam 7.5 mg PO BID Albuterol Inhaler [Ventolin Hfa Inhaler] 1 - 2 puff INHALATION RT-Q6H PRN PRN Reason: Dyspnea Tiotropium Br/Olodaterol HCl [Stiolto Respimat Inhal [place]] 2 puff INHALATION DAILY Discharge Medication List Cholecalciferol [Vitamin D3 (25 Mcg = 1000 Iu)] 2,000 unit PO DAILY 12/07/15 [History] Fenofibric Acid (Choline) [Trilipix] 135 mg PO DAILY 07/28/15 [History] Multivitamins, Thera [Multivitamin (formulary)] 1 tab PO DAILY 09/22/16 [History] Metoprolol Tartrate [Lopressor] 50 mg PO BID 09/18/17 [History] Albuterol Inhaler [Ventolin Hfa Inhaler] 1 - 2 puff INHALATION RT-Q6H PRN 10/29/19 [History] Meloxicam 7.5 mg PO BID 10/29/19 [History] Tiotropium Br/Olodaterol HCl [Stiolto Respimat Inhal [place]] 2 puff INHALATION DAILY 10/29/19 [History] Follow up Appointment(s)/Referral(s): Lorrie Carballo MD [STAFF PHYSICIAN] - 11/06/19 Patient Instructions/Handouts: Diverticulosis (ED), Diverticulosis Diet (GEN) Activity/Diet/Wound Care/Special Instructions: Will need CT colonography Discharge Disposition: HOME SELF-CARE
[2019-10-31 09:08] VITALS: RESP 16
[2019-10-31 09:27] VITALS: BP 180/81; PULSE 67
== END 2019-10-31 10:10 | disposition home or self-care (01) ==
LOC: ORWHC2ENDO 07:00
PROVIDERS: ATTEND Surgery Plastic and Reconstructive Surgery
DX: K57.30 Diverticulosis of large intestine without perforation or abscess without bleeding (principal); K64.0 First degree hemorrhoids; K64.8 Other hemorrhoids; K62.4 Stenosis of anus and rectum; R19.5 Other fecal abnormalities; J44.9 Chronic obstructive pulmonary disease, unspecified; E78.5 Hyperlipidemia, unspecified; I10 Essential (primary) hypertension; Z86.711 Personal history of pulmonary embolism; R42 Dizziness and giddiness; M19.90 Unspecified osteoarthritis, unspecified site; Z87.442 Personal history of urinary calculi; Z90.49 Acquired absence of other specified parts of digestive tract; Z90.710 Acquired absence of both cervix and uterus; Z98.890 Other specified postprocedural states; F40.240 Claustrophobia; Z87.891 Personal history of nicotine dependence; Z80.3 Family history of malignant neoplasm of breast; Z79.1 Long term (current) use of non-steroidal anti-inflammatories (NSAID); Z79.899 Other long term (current) drug therapy; Z88.1 Allergy status to other antibiotic agents; Z91.040 Latex allergy status; Z88.5 Allergy status to narcotic agent; Z88.0 Allergy status to penicillin; Z88.2 Allergy status to sulfonamides; Z88.8 Allergy status to other drugs, medicaments and biological substances; Z91.048 Other nonmedicinal substance allergy status; Z91.09 Other allergy status, other than to drugs and biological substances
CPT/HCPCS: 45330; J2001; J2704

== ENCOUNTER → 2020-10-24 | Outpatient (CLI) | payer MEDICARE ==
--- NOTE | 2020-10-28 10:40 | MM ---
Reason for exam: screening (asymptomatic). Last mammogram was performed 1 year ago. History: Patient is postmenopausal. Family history of premenopausal breast cancer in sister at age 40. Benign core biopsy of the right breast, January 31, 1997. Cyst aspiration of the left breast. Core biopsy of the left breast. Core biopsy of the right breast. 2 excisional biopsies of the left breast. Excisional biopsy of the right breast. Took estrogen for 5 years beginning at age 39. Took progesterone for 5 years beginning at age 39. Physical Findings: A clinical breast exam by your physician is recommended on an annual basis and results should be correlated with mammographic findings. MG 3D Screening Mammo W/Cad Bilateral CC and MLO view(s) were taken. Prior study comparison: October 12, 2019, bilateral MG 3d screening mammo w/cad. March 20, 2019, right breast MG 3d diag mammo w/cad RT. There are scattered fibroglandular densities. Stable oil cyst calcifiations and left upper outer quadrant focal asymmetry. No significant changes when compared with prior studies. ASSESSMENT: Benign, BI-RAD 2 RECOMMENDATION: Routine screening mammogram of both breasts in 1 year.
== END ==
LOC: RADMAMWWP 15:53
PROVIDERS: ATTEND Family Medicine
DX: Z12.31 Encounter for screening mammogram for malignant neoplasm of breast (principal); Z78.0 Asymptomatic menopausal state; Z80.3 Family history of malignant neoplasm of breast; N64.89 Other specified disorders of breast
CPT/HCPCS: 77063; 77067

== ENCOUNTER 2020-11-11 08:44 | Inpatient (IN) | payer MEDICARE ==
[2020-11-11] MEDS ORDERED: SODIUM CHLORIDE 0.9% 500 ML 500 ML IV STA (09:19)
[2020-11-11] MEDS ORDERED: ONDANSETRON 4 MG/2 ML VIAL IVP STA (09:26)
[2020-11-11] MEDS ORDERED: DIPHENOX-ATROP 2.5-0.025 MG 1 EACH TAB PO STA (09:27)
[2020-11-11 09:42] LABS: Basophils % (A) 1 %; Eosinophils % (A) 0 %; HCT 42.3 % (34.0-46.0); HGB 14.4 gm/dL (11.4-16.0); Lymphocytes # (A) 0.8 k/uL (1.0-4.8); Lymphocytes % (A) 18 %; MCH 30.4 pg (25.0-35.0); MCV 89.4 fL (80.0-100.0); Mean Platelet Volume 7.9; Monocytes # (A) 0.3 k/uL (0-1.0); Monocytes % (A) 8 %; Neutrophils % (A) 72 %; Platelet Count 183 k/uL (150-450); RBC 4.73 m/uL (3.80-5.40); RDW 12.6 % (11.5-15.5); WBC 4.1 k/uL (3.8-10.6)
[2020-11-11 09:56] LABS: Albumin 3.7 g/dL (3.5-5.0); Calcium 9.8 mg/dL (8.4-10.2); Magnesium 1.6 mg/dL (1.6-2.3); Potassium 3.9 mmol/L (3.5-5.1); Total Bilirubin 0.5 mg/dL (0.2-1.3); Total Protein 6.6 g/dL (6.3-8.2)
--- NOTE | 2020-11-11 10:23 | XR ---
EXAMINATION TYPE: XR chest 2V DATE OF EXAM: 11/11/2020 COMPARISON: Chest x-ray November 15, 2017. HISTORY: NEMESIO. TECHNIQUE: Frontal and lateral views of the chest are obtained. FINDINGS: There is background chronic thrombus in the pulmonary fibrotic change with new multifocal opacities in the bilateral lungs. Stable right basilar nodule corresponds to fat on lesion on CT 201 8. The cardiac silhouette size is mildly enlarged. The osseous structures are demineralized. Underl bassem Scoliosis is present. IMPRESSION: Chronic changes with new multifocal bilateral acute opacities strongly suspicious for co vid-19 infection.
--- NOTE | 2020-11-11 10:40 | ED ---
General Adult HPI - General Chief complaint: Nausea/Vomiting/Diarrhea Stated complaint: diarrhea/nausea Time Seen by Provider: 11/11/20 08:45 Source: patient, RN notes reviewed, old records reviewed Mode of arrival: wheelchair Limitations: no limitations - History of Present Illness Initial comments: This is an 80-year-old female presents emergency department stating that she has been having diarrhea since Tuesday. Patient states she initially had a cough was a little short of breath but the cough is subsided and she is no more short of breath than her normal COPD dyspnea. Patient denies any abdominal pain. Patient denies any dysuria hematuria urinary frequency. Patient denies chest pain or palpitations. Patient denies any back pain. Patient denies any fever chills. - Related Data Home Medications Medication Instructions Recorded Confirmed Cholecalciferol [Vitamin D3 (25 2,000 unit PO DAILY 07/28/15 11/11/20 Mcg = 1000 Iu)] Fenofibric Acid (Choline) 135 mg PO DAILY 07/28/15 11/11/20 [Trilipix] Multivitamins, Thera [Multivitamin 1 tab PO DAILY 09/22/16 11/11/20 (formulary)] Metoprolol Tartrate [Lopressor] 50 mg PO BID 09/18/17 11/11/20 Tiotropium Br/Olodaterol HCl 2 puff INHALATION RT-DAILY 10/29/19 11/11/20 [Stiolto Respimat Inhal [place]] Albuterol Inhaler [Ventolin Hfa 2 puff INHALATION RT-QID PRN 11/11/20 11/11/20 Inhaler] Allergies Allergy/AdvReac Type Severity Reaction Status Date / Time ciprofloxacin [From Cipro] Allergy Swelling Verified 11/11/20 09:26 ciprofloxacin HCl Allergy Swelling Verified 11/11/20 09:26 [From Cipro] ezetimibe [From Vytorin] Allergy Unknown Verified 11/11/20 09:26 iodine Allergy Unknown Verified 11/11/20 09:26 latex Allergy red skin Verified 11/11/20 09:26 Penicillins Allergy Rash/Hives Verified 11/11/20 09:26 Quinolones Allergy Unknown Verified 11/11/20 09:26 simvastatin [From Vytorin] Allergy Unknown Verified 11/11/20 09:26 Sulfa (Sulfonamide Allergy Itching Verified 11/11/20 09:26 Antibiotics) codeine AdvReac Nausea & Verified 11/11/20 09:26 Vomiting & Diarrhea bandaid Allergy Unknown Uncoded 10/31/19 07:37 Review of Systems ROS Statement: Those systems with pertinent positive or pertinent negative responses have been documented in the HPI. ROS Other: All systems not noted in ROS Statement are negative. Past Medical History Past Medical History: COPD, Hyperlipidemia, Hypertension, Pulmonary Embolus (PE) Additional Past Medical History / Comment(s): vertigo, arthritis, kidney stones History of Any Multi-Drug Resistant Organisms: None Reported Past Surgical History: Appendectomy, Back Surgery, Cholecystectomy, Hysterectomy Additional Past Surgical History / Comment(s): benign cyst from breast, fatty tumor removed lt shoulder Past Anesthesia/Blood Transfusion Reactions: No Reported Reaction Additional Past Anesthesia/Blood Transfusion Reaction / Comment(s): claustrophobic Past Psychological History: Anxiety Past Alcohol Use History: Rare Past Drug Use History: None Reported - Past Family History Sister(s) Family Medical History: Cancer Additional Family Medical History / Comment(s): breast cancer General Exam - General Exam Comments Initial Comments: GENERAL: Patient is well-developed and well-nourished. Patient is nontoxic and well- hydrated and is in mild distress. ENT: Neck is soft and supple. No significant lymphadenopathy is noted. Oropharynx is clear. Moist mucous membranes. Neck has full range of motion without eliciting any pain. EYES: The sclera were anicteric and conjunctiva were pink and moist. Extraocular movements were intact and pupils were equal round and reactive to light. Eyelids were unremarkable. PULMONARY: Unlabored respirations. Good breath sounds bilaterally. No audible rales rh onchi or wheezing was noted. CARDIOVASCULAR: There is a regular rate and rhythm without any murmurs gallops or rubs. ABDOMEN: Soft and nontender with normal bowel sounds. SKIN: Skin is clear with no lesions or rashes and otherwise unremarkable. NEUROLOGIC: Patient is alert and oriented x3. Cranial nerves II through XII are grossly intact. Motor and sensory are also intact. Normal speech, volume and content. Symmetrical smile. MUSCULOSKELETAL: Normal extremities with adequate strength and full range of motion. LYMPHATICS: No significant lymphadenopathy is noted PSYCHIATRIC: Normal psychiatric evaluation. Limitations: no limitations Course Vital Signs 11/11/20 11/11/20 11/11/20 08:44 09:09 10:24 Temperature 98.4 F 99.2 F 99.9 F H Pulse Rate 54 L 99 91 Respiratory 20 18 19 Rate Blood Pressure 139/67 163/80 140/72 O2 Sat by Pulse 93 L 96 98 Oximetry Medical Decision Making - Medical Decision Making EKG shows sinus tachycardia with multiple PVCs in a bigeminy pattern rates 103 bpm ME interval 146 dresses under 28 QT interval 398 QTC is 521. Patient's EKG shows no ST segment elevation or depression. Patient's chest x-ray shows opacities in bilateral bases consistent with COVID. Patient's comatose was positive. Patient did have one COVID shot in the series. Patient's had symptoms for 7 days. I spoke with Dr. Shepard's physician unit assistant he agreed that the patient will be 23 hours and so the patient qualifies for monoclonal antibodies and I'll give the patient monoclonal antibodies admit the patient to observation and have cardiology see the patient for the bigeminy and new left bundle branch block - Lab Data Result diagrams: 11/11/20 09:27 11/11/20 09:27 Lab Results 11/11/20 11/11/20 11/11/20 Range/Units 09:27 09:27 09:27 WBC 4.1 (3.8-10.6) k/uL RBC 4.73 (3.80-5.40) m/uL Hgb 14.4 (11.4-16.0) gm/dL Hct 42.3 (34.0-46.0) % MCV 89.4 (80.0-100.0) fL MCH 30.4 (25.0-35.0) pg MCHC 34.0 (31.0-37.0) g/dL RDW 12.6 (11.5-15.5) % Plt Count 183 (150-450) k/uL MPV 7.9 Neutrophils % 72 % Lymphocytes % 18 % Monocytes % 8 % Eosinophils % 0 % Basophils % 1 % Neutrophils # 3.0 (1.3-7.7) k/uL Lymphocytes # 0.8 L (1.0-4.8) k/uL Monocytes # 0.3 (0-1.0) k/uL Eosinophils # 0.0 (0-0.7) k/uL Basophils # 0.0 (0-0.2) k/uL Sodium 134 L (137-145) mmol/L Potassium 3.9 (3.5-5.1) mmol/L Chloride 101 (98-107) mmol/L Carbon Dioxide 24 (22-30) mmol/L Anion Gap 9 mmol/L BUN 19 H (7-17) mg/dL Creatinine 0.84 (0.52-1.04) mg/dL Est GFR (CKD-EPI)AfAm 75 (>60 ml/min/1.73 sqM) Est GFR (CKD-EPI)NonAf 65 (>60 ml/min/1.73 sqM) Glucose 115 H (74-99) mg/dL Calcium 9.8 (8.4-10.2) mg/dL Magnesium 1.6 (1.6-2.3) mg/dL Total Bilirubin 0.5 (0.2-1.3) mg/dL AST 56 H (14-36) U/L ALT 30 (4-34) U/L Alkaline Phosphatase 52 (38-126) U/L Troponin I 0.024 (0.000-0.034) ng/mL Total Protein 6.6 (6.3-8.2) g/dL Albumin 3.7 (3.5-5.0) g/dL Coronavirus (PCR) (Not Detectd) 11/11/20 Range/Units 09:27 WBC (3.8-10.6) k/uL RBC (3.80-5.40) m/uL Hgb (11.4-16.0) gm/dL Hct (34.0-46.0) % MCV (80.0-100.0) fL MCH (25.0-35.0) pg MCHC (31.0-37.0) g/dL RDW (11.5-15.5) % Plt Count (150-450) k/uL MPV Neutrophils % % Lymphocytes % % Monocytes % % Eosinophils % % Basophils % % Neutrophils # (1.3-7.7) k/uL Lymphocytes # (1.0-4.8) k/uL Monocytes # (0-1.0) k/uL Eosinophils # (0-0.7) k/uL Basophils # (0-0.2) k/uL Sodium (137-145) mmol/L Potassium (3.5-5.1) mmol/L Chloride (98-107) mmol/L Carbon Dioxide (22-30) mmol/L Anion Gap mmol/L BUN (7-17) mg/dL Creatinine (0.52-1.04) mg/dL Est GFR (CKD-EPI)AfAm (>60 ml/min/1.73 sqM) Est GFR (CKD-EPI)NonAf (>60 ml/min/1.73 sqM) Glucose (74-99) mg/dL Calcium (8.4-10.2) mg/dL Magnesium (1.6-2.3) mg/dL Total Bilirubin (0.2-1.3) mg/dL AST (14-36) U/L ALT (4-34) U/L Alkaline Phosphatase (38-126) U/L Troponin I (0.000-0.034) ng/mL Total Protein (6.3-8.2) g/dL Albumin (3.5-5.0) g/dL Coronavirus (PCR) Detected A (Not Detectd) Critical Care Time Critical Care Time: Yes Total Critical Care Time: 35 Disposition Clinical Impression: Pneumonia due to COVID-19 virus, Bigeminy, New onset left bundle branch block (LBBB) Disposition: ADMITTED IP TO THIS HOSP Referrals: Oral Shepard MD [Primary Care Provider] - 1-2 days Time of Disposition: 11:03
[2020-11-11] MEDS ORDERED: NITROGLYCERIN SL TABS 0.4 MG TAB SUBLINGUAL PRN (11:05)
[2020-11-11] MEDS ORDERED: BAMLANIVIMAB (EUA) 700 MG in SODIUM CHLORIDE 0.9% 50 ML IVPB ONE (11:30)
[2020-11-11] MEDS: ACETAMINOPHEN TAB 325 MG TAB PO PRN ×2 (11:56→20:40)
[2020-11-11] MEDS ORDERED: Magnesium Replacement Protocol 1 EACH MISC MISCELLANE PRN (12:10)
[2020-11-11] MEDS ORDERED: Potassium Replacement Protocol 1 EACH MISC MISCELLANE PRN (12:10)
--- NOTE | 2020-11-11 12:21 | ECHOF ---
Referral Reason:New left Bundle branch block MEASUREMENTS -------- HEIGHT: 157.5 cm WEIGHT: 79.4 kg BP: 140/72 RVIDd: 3.5 cm (< 3.3) IVSd: 1.4 cm (0.6 - 1.1) LVIDd: 4.2 cm (3.9 - 5.3) LVPWd: 1.4 cm (0.6 - 1.1) IVSs: 1.5 cm LVIDs: 3.3 cm LVPWs: 1.4 cm LAESV Index (A-L): 32.32 ml/m MV E Bill: 0.75 m/s MV DecT: 319 ms MV A Bill: 1.40 m/s MV E/A Ratio: 0.53 AV maxP.92 mmHg AV meanP.83 mmHg RAP: 5.00 mmHg RVSP: 50.84 mmHg FINDINGS -------- This was a technically difficult study with suboptimal parasternal views. The left ventricular size is normal. There is moderate concentric left ventricular hypertrophy. O verall left ventricular systolic function is low-normal with, an EF between 50 - 55 %. Septal wall motion is delayed, and consistent with conduction delay/bundle branch block. The right ventricle is mildly enlarged. LA is midly dilated 29-33ml/m2. The right atrium was not well visualized. Interatrial and interventricular septum intact. The aortic valve was not well visualized. There is no evidence of aortic regurgitation. There is mild aortic stenosis present. Peak/mean gradient across the Aortic Valve is 27.92mmHg / 15.83mmHg. Mild mitral regurgitation is present. [id number] tricuspid regurgitation present. There is moderate to severe pulmonary hypertensio n. The right ventricular systolic pressure, as measured by Doppler, is 50.84mmHg. There is no pulmonic regurgitation present. The aortic root size is normal. IVC Not well visulized. There is a small, generalized pericardial effusion present. CONCLUSIONS -------- 1. The left ventricular size is normal. 2. There is moderate concentric left ventricular hypertrophy. 3. Overall left ventricular systolic function is low-normal with, an EF between 50 - 55 %. 4. The right ventricle is mildly enlarged. 5. LA is midly dilated 29-33ml/m2. 6. There is mild aortic stenosis present. 7. Peak/mean gradient across the Aortic Valve is 27.92mmHg / 15.83mmHg. 8. Mild mitral regurgitation is present. 9. [id number] tricuspid regurgitation present. 10. There is moderate to severe pulmonary hypertension. 11. The right ventricular systolic pressure, as measured by Doppler, is 50.84mmHg. 12. There is a small, generalized pericardial effusion present. PARKING ASSISTANT: eMgha Calderon RDCS
--- NOTE | 2020-11-11 12:49 | P.CRDCN ---
History of Present Illness History of present illness: HISTORY OF PRESENTING ILLNESS This is a pleasant 80-year-old female past medical history significant for COPD, hypertension, dyslipidemia, mild coronary artery disease. She used to follow in the office with Dr. Burroughs last seen in 2015. We have been asked to see in consultation for new left bundle branch block. Patient presents emergency department with complaints of diarrhea, cough, shortness of breath. Patient's found to be Covid-19 positive. EKG revealed sinus tachycardia with bigeminy PVCs and left bundle branch block, QTc 521. Chest x-ray reveals opacities in the bilateral bases consistent with Covid. Previous EKG in 2015 showed normal sinus rhythm. In December 2017 patient underwent a Lexiscan stress test. Patient was in sinus rhythm. Normal axis and intervals. Results with no evidence of reversible ischemia. Patient seen and examined at bedside, no acute distress. Patient denies chest pain, palpitations, lower extremity edema, lightheadedness, syncope. Patient d enies history of diabetes, stroke, MT. Laboratory data reviewed, sodium 134, potassium 3.9, creatinine 0.84, magnesium 1.6, troponin negative 1 WBC 4.1, hemoglobin 14.4, platelets 183., Vital signs blood pressure 140/72, heart rate 91, temp 99.9F, maintaining oxygen saturation daily 3 L nasal cannula. Current cardiac medications include metoprolol titrate 50 mg twice a day. REVIEW OF SYSTEMS At the time of my exam: CONSTITUTIONAL: +Fever, Denies chills. CARDIOVASCULAR: +shortness of breath, Denies chest pain, orthopnea, PND or palpitations. RESPIRATORY: +cough. GASTROINTESTINAL: +diarrhea Denies abdominal pain, constipation, nausea or vomiting. MUSCULOSKELETAL: Denies myalgias. NEUROLOGIC: Denies numbness, tingling, headacbe or weakness. ENDOCRINE: Denies fatigue, weight change, polydipsia or polyurina. GENITOURINARY: Denies burning, hematuria or urgency with micturation. HEMATOLOGIC: Denies history of anemia or bleeding. PHYSICAL EXAMINATION CONSTITUTIONAL: No apparent distress. HEENT: Head is normocephalic. Pupils are equal, round. Sclerae anicteric. Mucous membranes of the mouth are moist. No JVD. No carotid bruit. CHEST EXAMINATION: Lungs are clear to auscultation. No chest wall tenderness is noted on palpation or with deep breathing. HEART EXAMINATION: Regular rate and rhythm. S1, S2 heard. No murmurs, gallops or rub. ABDOMEN: Soft, nontender. Positive bowel sounds. EXTREMITIES: 2+ peripheral pulses, no lower extremity edema and no calf tenderness. NEUROLOGIC EXAMINATION: Patient is awake, alert and oriented x3. 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 Burciaga Nurse Practitioner note has been reviewed, I agree with a documented findings and plan of care. Patient was seen and examined. Past Medical History Past Medical History: COPD, Hyperlipidemia, Hypertension, Pulmonary Embolus (PE) Additional Past Medical History / Comment(s): vertigo, arthritis, kidney stones History of Any Multi-Drug Resistant Organisms: None Reported Past Surgical History: Appendectomy, Back Surgery, Cholecystectomy, Hysterectomy Additional Past Surgical History / Comment(s): benign cyst from breast, fatty tumor removed lt shoulder Past Anesthesia/Blood Transfusion Reactions: No Reported Reaction Additional Past Anesthesia/Blood Transfusion Reaction / Comment(s): claustrophobic Past Psychological History: Anxiety Past Alcohol Use History: Rare Past Drug Use History: None Reported - Past Family History Sister(s) Family Medical History: Cancer Additional Family Medical History / Comment(s): breast cancer Medications and Allergies Home Medications Medication Instructions Recorded Confirmed Type Cholecalciferol [Vitamin D3 (25 2,000 unit PO DAILY 07/28/15 11/11/20 History Mcg = 1000 Iu)] Fenofibric Acid (Choline) 135 mg PO DAILY 07/28/15 11/11/20 History [Trilipix] Multivitamins, Thera [Multivitamin 1 tab PO DAILY 09/22/16 11/11/20 History (formulary)] Metoprolol Tartrate [Lopressor] 50 mg PO BID 09/18/17 11/11/20 History Tiotropium Br/Olodaterol HCl 2 puff INHALATION RT-DAILY 10/29/19 11/11/20 History [Stiolto Respimat Inhal [place]] Albuterol Inhaler [Ventolin Hfa 2 puff INHALATION RT-QID PRN 11/11/20 11/11/20 History Inhaler] Allergies Allergy/AdvReac Type Severity Reaction Status Date / Time ciprofloxacin [From Cipro] Allergy Swelling Verified 11/11/20 09:26 ciprofloxacin HCl Allergy Swelling Verified 11/11/20 09:26 [From Cipro] ezetimibe [From Vytorin] Allergy Unknown Verified 11/11/20 09:26 iodine Allergy Unknown Verified 11/11/20 09:26 latex Allergy red skin Verified 11/11/20 09:26 Penicillins Allergy Rash/Hives Verified 11/11/20 09:26 Quinolones Allergy Unknown Verified 11/11/20 09:26 simvastatin [From Vytorin] Allergy Unknown Verified 11/11/20 09:26 Sulfa (Sulfonamide Allergy Itching Verified 11/11/20 09:26 Antibiotics) codeine AdvReac Nausea & Verified 11/11/20 09:26 Vomiting & Diarrhea bandaid Allergy Unknown Uncoded 10/31/19 07:37 Physical Exam Vitals: Vital Signs Temp Pulse Resp BP Pulse Ox 11/11/20 10:24 99.9 F H 91 19 140/72 98 11/11/20 09:09 99.2 F 99 18 163/80 96 11/11/20 08:44 98.4 F 54 L 20 139/67 93 L Intake and Output 11/10/20 11/11/20 11/11/20 22:59 06:59 14:59 Other: Weight 79.379 kg Results 11/11/20 09:27 11/11/20 09:27 Cardiac Enzymes 11/11/20 11/11/20 Range/Units 09:27 09:27 AST 56 H (14-36) U/L Troponin I 0.024 (0.000-0.034) ng/mL CBC 11/11/20 Range/Units 09:27 WBC 4.1 (3.8-10.6) k/uL RBC 4.73 (3.80-5.40) m/uL Hgb 14.4 (11.4-16.0) gm/dL Hct 42.3 (34.0-46.0) % Plt Count 183 (150-450) k/uL Comprehensive Metabolic Panel 11/11/20 Range/Units 09:27 Sodium 134 L (137-145) mmol/L Potassium 3.9 (3.5-5.1) mmol/L Chloride 101 (98-107) mmol/L Carbon Dioxide 24 (22-30) mmol/L BUN 19 H (7-17) mg/dL Creatinine 0.84 (0.52-1.04) mg/dL Glucose 115 H (74-99) mg/dL Calcium 9.8 (8.4-10.2) mg/dL AST 56 H (14-36) U/L ALT 30 (4-34) U/L Alkaline Phosphatase 52 (38-126) U/L Total Protein 6.6 (6.3-8.2) g/dL Albumin 3.7 (3.5-5.0) g/dL Current Medications Generic Name Dose Route Start Last Admin Trade Name Freq PRN Reason Stop Dose Admin Non-Formulary Medication 700 70 mls @ 270 mls/hr 11/11/20 11:30 mg/ Sodium Chloride IVPB 11/11/20 11:45 ONCE ONE Nitroglycerin 0.4 mg 11/11/20 11:05 Nitroglycerin Sl Tabs 0.4 Mg Tab SUBLINGUAL Q5M PRN Chest Pain Intake and Output 11/10/20 11/11/20 11/11/20 22:59 06:59 14:59 Other: Weight 79.379 kg Patient Weight 11/12/20 06:59 Weight 79.379 kg 11/11/20 09:27 11/11/20 09:27
[2020-11-11] MEDS ORDERED: POTASSIUM CHLORIDE ER 20 MEQ TAB.ER PO SCH (13:00)
[2020-11-11] MEDS: METOPROLOL TARTRATE 50 MG TAB PO SCH ×2 (13:17→21:45)
[2020-11-11] MEDS: MAGNESIUM SULFATE-D5W PMX 1 GM in DEXTROSE/WATER 1 100ML.BAG IVPB SCH ×2 (13:41→16:16)
[2020-11-11] MEDS ORDERED: ALBUTEROL HFA INHALER INHALATION PRN (16:40)
--- NOTE | 2020-11-11 19:14 | P.HPIM ---
History of Present Illness H&P Date: 11/11/20 (7735) Chief Complaint: Generalized malaise/nausea/ vomiting/diarrhea/nonproductive cough 80-year-old female presented to the emergency room with a complaint of generalized malaise with associated nausea, vomiting, diarrhea; with addition patient complaint of increasing shortness of breath and a nonproductive cough. Patient had extensive diagnostic workup in emergency department revealing Covid 19 pneumonia, new onset left bundle branch block with frequent PVCs. Patient to receivd monoclonal antibody therapy for Covid 19 pneumonia. Cardiology consult for new left bundle branch block with frequent PVCs. Patient has significant medical history of COPD, hyperlipidemia, hypertension, osteoarthritis, history of pulmonary embolism's, and anxiety. Review of Systems Constitutional: Reports chills, Reports malaise, Reports poor appetite, Reports weakness Cardiovascular: Reports decreased exercise tolerance, Reports dyspnea on exertion, Reports palpitations Respiratory: Reports dyspnea Gastrointestinal: Reports diarrhea, Reports nausea, Reports vomiting Musculoskeletal: Reports muscle weakness Neurological: Reports headaches, Reports weakness Past Medical History Past Medical History: COPD, Hyperlipidemia, Hypertension, Pulmonary Embolus (PE) Additional Past Medical History / Comment(s): vertigo, arthritis, kidney stones History of Any Multi-Drug Resistant Organisms: None Reported Past Surgical History: Appendectomy, Back Surgery, Cholecystectomy, Hysterectomy Additional Past Surgical History / Comment(s): benign cyst from breast, fatty tumor removed lt shoulder Past Anesthesia/Blood Transfusion Reactions: No Reported Reaction Additional Past Anesthesia/Blood Transfusion Reaction / Comment(s): claustrophobic Past Psychological History: Anxiety Past Alcohol Use History: Rare Past Drug Use History: None Reported - Past Family History Sister(s) Family Medical History: Cancer Additional Family Medical History / Comment(s): breast cancer Medications and Allergies Home Medications and Allergies Comment(s): Medications and allergies reviewed Home Medications Medication Instructions Recorded Confirmed Type Cholecalciferol [Vitamin D3 (25 2,000 unit PO DAILY 07/28/15 11/11/20 History Mcg = 1000 Iu)] Fenofibric Acid (Choline) 135 mg PO DAILY 07/28/15 11/11/20 History [Trilipix] Multivitamins, Thera [Multivitamin 1 tab PO DAILY 09/22/16 11/11/20 History (formulary)] Metoprolol Tartrate [Lopressor] 50 mg PO BID 09/18/17 11/11/20 History Tiotropium Br/Olodaterol HCl 2 puff INHALATION RT-DAILY 10/29/19 11/11/20 History [Stiolto Respimat Inhal [place]] Albuterol Inhaler [Ventolin Hfa 2 puff INHALATION RT-QID PRN 11/11/20 11/11/20 History Inhaler] Allergies Allergy/AdvReac Type Severity Reaction Status Date / Time ciprofloxacin [From Cipro] Allergy Swelling Verified 11/11/20 09:26 ciprofloxacin HCl Allergy Swelling Verified 11/11/20 09:26 [From Cipro] ezetimibe [From Vytorin] Allergy Unknown Verified 11/11/20 09:26 iodine Allergy Unknown Verified 11/11/20 09:26 latex Allergy red skin Verified 11/11/20 09:26 Penicillins Allergy Rash/Hives Verified 11/11/20 09:26 Quinolones Allergy Unknown Verified 11/11/20 09:26 simvastatin [From Vytorin] Allergy Unknown Verified 11/11/20 09:26 Sulfa (Sulfonamide Allergy Itching Verified 11/11/20 09:26 Antibiotics) codeine AdvReac Nausea & Verified 11/11/20 09:26 Vomiting & Diarrhea bandaid Allergy Unknown Uncoded 10/31/19 07:37 Physical Exam Vitals: Vital Signs Temp Pulse Resp BP Pulse Ox 11/11/20 18:00 99.2 F 88 18 134/52 96 11/11/20 13:00 99.1 F 90 18 105/51 98 11/11/20 10:24 99.9 F H 91 19 140/72 98 11/11/20 09:09 99.2 F 99 18 163/80 96 11/11/20 08:44 98.4 F 54 L 20 139/67 93 L Intake and Output 11/11/20 11/11/20 11/11/20 06:59 14:59 22:59 Other: Weight 79.379 kg - Constitutional General appearance: cooperative, mild distress - EENT Eyes: EOMI, PERRLA ENT: normal oropharynx Ears: bilateral: normal - Neck Neck: normal ROM Carotids: bilateral: upstroke normal Thyroid: bilateral: normal size - Respiratory Respiratory: bilateral: diminished (Anterior lung stewart) - Cardiovascular Sinus rhythm new left bundle branch block, and frequent PVCs Heart rate: 88 Rhythm: regular Heart sounds: normal: S1, S2 radial pulse Peripheral Pulses: bilateral: Normal dorsalis pedis Peripheral Pulses: bilateral: Normal - Gastrointestinal General gastrointestinal: normal bowel sounds - Integumentary Integumentary: decreased turgor, pale - Neurologic Neurologic: CNII-XII intact - Musculoskeletal Musculoskeletal: generalized weakness - Psychiatric Psychiatric: A&O x's 3, appropriate affect, intact judgment & insight Results CBC & Chem 7: 11/11/20 09:27 11/11/20 09:27 Labs: Abnormal Lab Results - Last 24 Hours (Table) 11/11/20 11/11/20 11/11/20 Range/Units 09:27 09:27 09:27 Lymphocytes # 0.8 L (1.0-4.8) k/uL Sodium 134 L (137-145) mmol/L BUN 19 H (7-17) mg/dL Glucose 115 H (74-99) mg/dL AST 56 H (14-36) U/L Coronavirus (PCR) Detected A (Not Detectd) Chest x-ray: report reviewed Thrombosis Risk Factor Assmnt - Choose All That Apply Each Factor Represents 1 point: Abnormal pulmonary function (COPD), Obesity (BMI >25) Each Risk Factor Represents 3 Points: Age 75 years or older, History of DVT/PE Thrombosis Risk Factor Assessment Total Risk Factor Score: 8 Thrombosis Risk Factor Assessment Level: High Risk Assessment and Plan Assessment: Covid 19 pneumonia new onset left bundle branch block with frequent PVCs generalized malaise noted with nausea vomiting diarrhea dyspnea on exertion with nonproductive cough COPD hyperlipidemia hypertension mixed anxiety and depression history of pulmonary embolism's history of vertigo osteoarthritis history of appendectomy history of back surgeries history of cholecystectomy history of hysterectomy full code Plan: Covid 19 pneumonia infusion of monoclonal antibodies continue to monitor for signs and symptoms of worsening Covid 19 new left bundle branch block with frequent PVCs consultation with cardiology for recommendations and treatment plan generalized malaise continue home medications continue medical management hopeful discharge in 24 hours Time with Patient: Greater than 30
[2020-11-11] MEDS ORDERED: IPRATROPIUM 0.5 MG/2.5 ML NEBU INHALATION SCH (20:00)
[2020-11-12] MEDS ORDERED: FORMOTEROL FUMARATE 20 MCG/2 ML NEBU INHALATION SCH (08:00)
--- NOTE | 2020-11-12 08:33 | XR ---
EXAMINATION TYPE: XR chest 1V DATE OF EXAM: 11/12/2020 HISTORY: Shortness of breath. COMPARISON: 11/11/2020 TECHNIQUE: Single view of the chest is submitted. FINDINGS: Demonstrated are scattered senescent parenchymal change. Interval development of peripheral infiltrate left lung as well as infiltrate left lower lobe. Mild i ncreasing patchy density right upper lobe noted as well. Correlate for nonspecific pneumonia. The heart is stable. Hilar and mediastinal structures are within normal limits. Degenerative changes are seen of the dorsal spine. IMPRESSION: 1. Interval development of peripheral infiltrate left lung as well as infiltrate left lower lobe. Mi ld increasing patchy density right upper lobe noted as well. Correlate for nonspecific pneumonia.
[2020-11-12] MEDS: MULTIVITAMINS, THERA 1 EACH TAB PO SCH (10:04)
[2020-11-12] MEDS: FENOFIBRATE 160 MG TAB PO SCH (10:04)
[2020-11-12] MEDS: METOPROLOL TARTRATE 50 MG TAB PO SCH ×2 (10:04→21:01)
[2020-11-12] MEDS: CHOLECALCIFEROL 25 MCG (1000 IU) TABLET PO SCH (10:04)
[2020-11-12] MEDS: DEXAMETHASONE SOD PHOSPHATE 10 MG/ML 1 ML VIAL IV SCH (10:04)
[2020-11-12] MEDS: ASCORBIC ACID 500 MG TAB PO SCH (10:05)
[2020-11-12] MEDS: ZINC SULFATE 220 MG CAP PO SCH (10:05)
[2020-11-12 10:07] LABS: ALT 40 U/L (4-34); AST 75 U/L (14-36); African American GFR (CKD) >90 (>60 ml/min/1.73 sqM); Albumin 2.9 g/dL (3.5-5.0); Alkaline Phosphatase 56 U/L (38-126); Anion Gap 7 mmol/L; Blood Urea Nitrogen 19 mg/dL (7-17); Calcium 8.8 mg/dL (8.4-10.2); Carbon Dioxide 25 mmol/L (22-30); Chloride 101 mmol/L (98-107); Cholesterol 109 mg/dL (<200); Creatine Kinase 298 U/L (30-135); Glucose 100 mg/dL (74-99); HDL Cholesterol 33 mg/dL (40-60); LDH 834 U/L (313-618); LDL Cholesterol,Calculated 61 mg/dL (0-99); Magnesium 2.1 mg/dL (1.6-2.3); Non-African American GFR(CKD) 83 (>60 ml/min/1.73 sqM); Potassium 4.4 mmol/L (3.5-5.1); Sodium 133 mmol/L (137-145); Total Bilirubin 0.6 mg/dL (0.2-1.3); Total Protein 5.5 g/dL (6.3-8.2); Triglycerides 73 mg/dL (<150)
[2020-11-12 10:41] LABS: C Reactive Protein 263.9 mg/L (<10.0)
[2020-11-12 10:47] LABS: Basophils % (A) 0 %; Eosinophils % (A) 0 %; HCT 38.4 % (34.0-46.0); HGB 12.9 gm/dL (11.4-16.0); Lymphocytes # (A) 0.5 k/uL (1.0-4.8); Lymphocytes % (A) 7 %; MCH 30.3 pg (25.0-35.0); MCHC 33.5 g/dL (31.0-37.0); MCV 90.6 fL (80.0-100.0); Mean Platelet Volume 8.4; Monocytes # (A) 0.3 k/uL (0-1.0); Monocytes % (A) 4 %; Neutrophils # (A) 6.6 k/uL (1.3-7.7); Neutrophils % (A) 89 %; Platelet Count 161 k/uL (150-450); RBC 4.24 m/uL (3.80-5.40); RDW 12.6 % (11.5-15.5); WBC 7.5 k/uL (3.8-10.6)
[2020-11-12] MEDS: TIOTROPIUM 2.5 MCG INHALER INHALATION SCH (12:31)
[2020-11-12] MEDS: ALBUTEROL HFA INHALER INHALATION SCH ×2 (12:31→20:28)
[2020-11-12 12:35] LABS: D-Dimer 0.51 mg/L FEU (<0.60); Partial Thromboplastin Time 27.2 sec (22.0-30.0); Prothrombin Time 10.6 sec (9.0-12.0)
--- NOTE | 2020-11-12 15:47 | P.CNPUL ---
History of Present Illness Consult date: 11/12/20 Reason for consult: dyspnea, cough, hypoxemia, pneumonia Chief complaint: Shortness of breath and cough History of present illness: This is a pleasant 80-year-old female with a remote history of smoking back in 70s, prior medical history significant for COPD, hypertension, dyslipidemia, and vitamin D deficiency, she has been in good state of health, she has a covert 19 vaccine on November 01 3-4 days later started having symptoms with myalgia cough shortness of breath and headache thought related to vaccination but symptoms instead of getting better continued to get worse, she also have ongoing intermittent diarrhea, patient presented into into the ER chest x-ray shows bilateral interstitial infiltrate predominantly in the bases, consistent with covert pneumonia, prior to admit patient had a monoclonal antibodies, currently patient is being treated with Decadron continuation of her home medications and supplemental oxygen, patient has been on supplements as well, patient noted to have a normal d-dimer, elevated C-reactive protein, LDH mildly elevated liver enzymes, Review of Systems All systems: negative Past Medical History Past Medical History: COPD, Hyperlipidemia, Hypertension, Pulmonary Embolus (PE) Additional Past Medical History / Comment(s): vertigo, arthritis, kidney stones History of Any Multi-Drug Resistant Organisms: None Reported Past Surgical History: Appendectomy, Back Surgery, Cholecystectomy, Hysterectomy Additional Past Surgical History / Comment(s): benign cyst from breast, fatty tumor removed lt shoulder Past Anesthesia/Blood Transfusion Reactions: No Reported Reaction Additional Past Anesthesia/Blood Transfusion Reaction / Comment(s): claustro phobic Past Psychological History: Anxiety Smoking Status: Never smoker Past Alcohol Use History: Rare Additional Past Alcohol Use History / Comment(s): smoked for 30-40 years 1 ppd quit 2009 Past Drug Use History: None Reported - Past Family History Sister(s) Family Medical History: Cancer Additional Family Medical History / Comment(s): breast cancer Medications and Allergies Home Medications Medication Instructions Recorded Confirmed Type Cholecalciferol [Vitamin D3 (25 2,000 unit PO DAILY 07/28/15 11/11/20 History Mcg = 1000 Iu)] Fenofibric Acid (Choline) 135 mg PO DAILY 07/28/15 11/11/20 History [Trilipix] Multivitamins, Thera [Multivitamin 1 tab PO DAILY 09/22/16 11/11/20 History (formulary)] Metoprolol Tartrate [Lopressor] 50 mg PO BID 09/18/17 11/11/20 History Tiotropium Br/Olodaterol HCl 2 puff INHALATION RT-DAILY 10/29/19 11/11/20 History [Stiolto Respimat Inhal [place]] Albuterol Inhaler [Ventolin Hfa 2 puff INHALATION RT-QID PRN 11/11/20 11/11/20 History Inhaler] Allergies Allergy/AdvReac Type Severity Reaction Status Date / Time ciprofloxacin [From Cipro] Allergy Swelling Verified 11/11/20 09:26 ciprofloxacin HCl Allergy Swelling Verified 11/11/20 09:26 [From Cipro] ezetimibe [From Vytorin] Allergy Unknown Verified 11/11/20 09:26 iodine Allergy Unknown Verified 11/11/20 09:26 latex Allergy red skin Verified 11/11/20 09:26 Penicillins Allergy Rash/Hives Verified 11/11/20 09:26 Quinolones Allergy Unknown Verified 11/11/20 09:26 simvastatin [From Vytorin] Allergy Unknown Verified 11/11/20 09:26 Sulfa (Sulfonamide Allergy Itching Verified 11/11/20 09:26 Antibiotics) codeine AdvReac Nausea & Verified 11/11/20 09:26 Vomiting & Diarrhea bandaid Allergy Unknown Uncoded 10/31/19 07:37 Physical Exam Vitals: Vital Signs Temp Pulse Pulse Pulse Resp BP BP 11/12/20 13:07 74 80 18 11/12/20 12:00 97.8 F 74 18 111/74 11/12/20 08:00 98 F 84 80 18 136/81 11/12/20 03:43 97.9 F 80 18 121/51 11/12/20 02:00 18 11/12/20 00:00 98.4 F 77 18 124/58 11/11/20 21:49 99.9 F H 98 20 120/55 11/11/20 20:33 102.2 F H 100 16 142/53 11/11/20 18:00 99.2 F 88 18 134/52 Pulse Ox 11/12/20 13:07 11/12/20 12:00 97 11/12/20 08:00 96 11/12/20 03:43 94 L 11/12/20 02:00 11/12/20 00:00 95 11/11/20 21:49 94 L 11/11/20 20:33 100 11/11/20 18:00 96 Intake and Output 11/12/20 11/12/20 11/12/20 06:59 14:59 22:59 Intake Total 10 256 Balance 10 256 Intake: IV 10 20 Invasive Line 1 10 20 Oral 236 Other: Voiding Method Toilet # Voids 1 2 Weight 74.5 kg - Constitutional General appearance: average body habitus, cooperative, disheveled - EENT Eyes: EOMI, PERRLA Ears: bilateral: normal - Neck Neck: normal ROM Carotids: bilateral: upstroke normal Thyroid: bilateral: normal size - Respiratory Respiratory: bilateral: diminished - Cardiovascular Rhythm: regular Heart sounds: normal: S1, S2 - Gastrointestinal General gastrointestinal: normal bowel sounds, soft - Integumentary Integumentary: normal turgor - Neurologic Neurologic: CNII-XII intact - Musculoskeletal Musculoskeletal: gait normal, generalized weakness, strength equal bilaterally - Psychiatric Psychiatric: A&O x's 3, appropriate affect, intact judgment & insight Results - Laboratory Findings CBC and BMP: 11/12/20 09:01 11/12/20 09:44 PT/INR, D-dimer PT 10.6 sec (9.0-12.0) 11/12/20 11:38 INR 1.0 (<1.2) 11/12/20 11:38 D-Dimer 0.51 mg/L FEU (<0.60) 11/12/20 11:38 Abnormal lab findings: Abnormal Labs 11/11/20 11/11/20 11/11/20 09:27 09:27 09:27 Lymphocytes # 0.8 L Fibrinogen Sodium 134 L BUN 19 H Glucose 115 H AST 56 H ALT Lactate Dehydrogenase Creatine Kinase C-Reactive Protein Total Protein Albumin HDL Cholesterol Coronavirus (PCR) Detected A 11/12/20 11/12/20 11/12/20 09:01 09:44 11:38 Lymphocytes # 0.5 L Fibrinogen 645 H Sodium 133 L BUN 19 H Glucose 100 H AST 75 H ALT 40 H Lactate Dehydrogenase 834 H Creatine Kinase 298 H C-Reactive Protein 263.9 H Total Protein 5.5 L Albumin 2.9 L HDL Cholesterol 33 L Coronavirus (PCR) - Diagnostic Findings Chest x-ray: report reviewed, image reviewed (Finding as noted above) Assessment and Plan Assessment: Covid 19 pneumonia Acute hypoxic respiratory failure Baseline moderate COPD Low-grade inflammatory response due to covert 19 Status post single shot of covid 19 vaccine moderna Plan: Continue bronchodilators IV Decadron Patient is out of therapeutic benefit from IV REMdesivir Supplemental oxygen, keep oxygen saturation 90-92%, titrate oxygen down as tolerated Deep breathing exercises incentive spirometry Prone positioning during sleep as much as possible Time with Patient: Greater than 30
[2020-11-12 17:47] LABS: Ferritin 397.4 ng/mL (10.0-291.0)
--- NOTE | 2020-11-12 20:25 | P.PN ---
Subjective Progress Note Date: 11/12/20 Principal diagnosis: Covid 19 pneumonia Evaluated 80-year-old female this a.m., patient resting in bed with supplemental oxygen at 3 L for complaint of shortness of breath and keep oxygen saturation's 92 to 94%. Patient endorses fatigue, shortness of breath at rest, dyspnea on exertion, and generalized malaise. Patient denies chest pain, palpitations, abdominal pain, nausea, or vomiting at this time. Ordered repeat chest x-ray due to patient's need for supplemental oxygen and advantageous lung sounds. Chest x- ray reveals progression of Covid 19 pneumonia. Ordered inflammatory markers for Covid 19 pneumonia, and consult of pulmonary critical care for recommendations and treatment plan. Objective - Vital Signs Vital signs: Vital Signs Temp 97.9 F 11/12/20 16:00 Pulse 92 11/12/20 16:00 Resp 19 11/12/20 16:00 BP 134/76 11/12/20 16:00 Pulse Ox 96 11/12/20 16:00 Intake & Output 11/12/20 11/12/20 11/13/20 06:59 18:59 06:59 Intake Total 10 496 Balance 10 496 Weight 74.5 kg Intake: IV 10 20 Invasive Line 1 10 20 Oral 476 Other: Voiding Method Toilet # Voids 1 1 - Constitutional General appearance: Present: mild distress - EENT Eyes: Present: EOMI, PERRLA ENT: Present: normal oropharynx Ears: bilateral: normal - Neck Neck: Present: normal ROM Carotids: bilateral: upstroke normal Thyroid: bilateral: normal size - Respiratory Respiratory: bilateral: rhonchi (Course rhonchi through out anterior and posterior lung stewart) - Cardiovascular Heart rate: 80 Rhythm: regular Heart sounds: normal: S1, S2 - Peripheral pulses radial pulse Peripheral Pulses: bilateral: Normal dorsalis pedis Peripheral Pulses: bilateral: Normal - Gastrointestinal General gastrointestinal: Present: normal bowel sounds - Integumentary Integumentary: Present: pale - Neurologic Neurologic: Present: CNII-XII intact - Musculoskeletal Musculoskeletal: Present: generalized weakness - Psychiatric Psychiatric: Present: A&O x's 3 - Allied health notes Allied health notes reviewed: nursing - Labs CBC & Chem 7: 11/12/20 09:01 11/12/20 09:44 Labs: Abnormal Lab Results - Last 24 Hours (Table) 11/12/20 11/12/20 11/12/20 Range/Units 09:01 09:44 11:38 Lymphocytes # 0.5 L (1.0-4.8) k/uL Fibrinogen 645 H (200-500) mg/dL Sodium 133 L (137-145) mmol/L BUN 19 H (7-17) mg/dL Glucose 100 H (74-99) mg/dL Ferritin 397.4 H (10.0-291.0) ng/mL AST 75 H (14-36) U/L ALT 40 H (4-34) U/L Lactate Dehydrogenase 834 H (313-618) U/L Creatine Kinase 298 H (30-135) U/L C-Reactive Protein 263.9 H (<10.0) mg/L Total Protein 5.5 L (6.3-8.2) g/dL Albumin 2.9 L (3.5-5.0) g/dL HDL Cholesterol 33 L (40-60) mg/dL - Imaging and Cardiology Chest x-ray: image reviewed Assessment and Plan Assessment: Covid 19 pneumonia new onset left bundle branch block with frequent PVCs generalized malaise noted with nausea vomiting diarrhea dyspnea on exertion with nonproductive cough COPD hyperlipidemia hypertension mixed anxiety and depression history of pulmonary embolism's history of vertigo osteoarthritis history of appendectomy history of back surgeries history of cholecystectomy history of hysterectomy full code Plan: Covid 19 pneumonia infusion of monoclonal antibodies Consulted pulmonary critical care for recommendations and treatment plan for progression of Covid 19 pneumonia. Elevated inflammatory markers Chest x-ray reviewed progression of Covid 19 pneumonia new left bundle branch block with frequent PVCs consultation with cardiology for recommendations and treatment plan generalized malaise continue home medications continue medical management Further recommendations to come based on patient's clinical course [facility] Hospitalist to follow Time with Patient: Greater than 30
[2020-11-13] MEDS: ALBUTEROL HFA INHALER INHALATION SCH ×4 (03:33→20:23)
[2020-11-13] MEDS: CHOLECALCIFEROL 25 MCG (1000 IU) TABLET PO SCH (09:43)
[2020-11-13] MEDS: ASCORBIC ACID 500 MG TAB PO SCH (09:43)
[2020-11-13] MEDS: DEXAMETHASONE SOD PHOSPHATE 10 MG/ML 1 ML VIAL IV SCH (09:43)
[2020-11-13] MEDS: METOPROLOL TARTRATE 50 MG TAB PO SCH ×2 (09:43→21:14)
[2020-11-13] MEDS: ZINC SULFATE 220 MG CAP PO SCH (09:43)
[2020-11-13] MEDS: FENOFIBRATE 160 MG TAB PO SCH (09:43)
[2020-11-13] MEDS: MULTIVITAMINS, THERA 1 EACH TAB PO SCH (09:43)
[2020-11-13 10:31] LABS: Basophils % (A) 0 %; Eosinophils % (A) 0 %; HCT 40.5 % (34.0-46.0); HGB 13.1 gm/dL (11.4-16.0); Lymphocytes # (A) 0.4 k/uL (1.0-4.8); Lymphocytes % (A) 7 %; MCH 29.3 pg (25.0-35.0); MCHC 32.3 g/dL (31.0-37.0); MCV 90.7 fL (80.0-100.0); Monocytes # (A) 0.3 k/uL (0-1.0); Monocytes % (A) 5 %; Neutrophils # (A) 5.3 k/uL (1.3-7.7); Neutrophils % (A) 87 %; Platelet Count 239 k/uL (150-450); RBC 4.46 m/uL (3.80-5.40); RDW 12.9 % (11.5-15.5); WBC 6.1 k/uL (3.8-10.6)
--- NOTE | 2020-11-13 10:41 | P.PN ---
Subjective Progress Note Date: 11/13/20 Principal diagnosis: Covid 19 pneumonia Acute hypoxic respiratory failure Baseline moderate COPD Low-grade inflammatory response due to covert 19 Status post single shot of covid 19 vaccine moderna 11/13/2020, patient seen eval examined during the rounds labs reviewed medica tions reviewed care plan discussed, patient remains on 2 L oxygen shortness of breath stable, denies any chest pain patient likely will need home oxygen as well, respiratory status improved, patient remains on therapy, she remains afebrile and oxygen saturation 96% with liters oxygen, hemodynamic status stable, currently she is on IV Decadron, agree with discharge planning on by mouth Decadron for 10 days patient will likely need home oxygen as well This is a pleasant 80-year-old female with a remote history of smoking back in 70s, prior medical history significant for COPD, hypertension, dyslipidemia, and vitamin D deficiency, she has been in good state of health, she has a covert 19 vaccine on November 01 3-4 days later started having symptoms with myalgia cough shortness of breath and headache thought related to vaccination but symptoms instead of getting better continued to get worse, she also have ongoing intermittent diarrhea, patient presented into into the ER chest x-ray shows bi lateral interstitial infiltrate predominantly in the bases, consistent with covert pneumonia, prior to admit patient had a monoclonal antibodies, currently patient is being treated with Decadron continuation of her home medications and supplemental oxygen, patient has been on supplements as well, patient noted to have a normal d-dimer, elevated C-reactive protein, LDH mildly elevated liver enzymes, Objective - Vital Signs Vital signs: Vital Signs Temp 97.9 F 11/13/20 08:00 Pulse 76 11/13/20 08:00 Resp 18 11/13/20 08:00 BP 142/71 11/13/20 08:00 Pulse Ox 96 11/13/20 08:00 Intake & Output 11/12/20 11/13/20 11/13/20 18:59 06:59 18:59 Intake Total 496 20 118 Output Total 200 Balance 496 -180 118 Weight 74.6 kg Intake: IV 20 20 Invasive Line 1 20 20 Oral 476 118 Output: Urine 200 Other: Voiding Method Toilet # Voids 1 2 1 - Exam - Constitutional General appearance: average body habitus, cooperative, disheveled - EENT Eyes: EOMI, PERRLA Ears: bilateral: normal - Neck Neck: normal ROM Carotids: bilateral: upstroke normal Thyroid: bilateral: normal size - Respiratory Respiratory: bilateral: diminished - Cardiovascular Rhythm: regular Heart sounds: normal: S1, S2 - Gastrointestinal General gastrointestinal: normal bowel sounds, soft - Integumentary Integumentary: normal turgor - Neurologic Neurologic: CNII-XII intact - Musculoskeletal Musculoskeletal: gait normal, generalized weakness, strength equal bilaterally - Psychiatric Psychiatric: A&O x's 3, appropriate affect, intact judgment & insight - Labs CBC & Chem 7: 11/13/20 09:56 11/12/20 09:44 Labs: Abnormal Lab Results - Last 24 Hours (Table) 11/12/20 11/12/20 11/12/20 Range/Units 09:01 09:44 11:38 Lymphocytes # 0.5 L (1.0-4.8) k/uL Fibrinogen 645 H (200-500) mg/dL Ferritin 397.4 H (10.0-291.0) ng/mL C-Reactive Protein 263.9 H (<10.0) mg/L Procalcitonin (0.02-0.09) ng/mL 11/12/20 11/13/20 Range/Units 11:38 09:56 Lymphocytes # 0.4 L (1.0-4.8) k/uL Fibrinogen (200-500) mg/dL Ferritin (10.0-291.0) ng/mL C-Reactive Protein (<10.0) mg/L Procalcitonin 0.60 H (0.02-0.09) ng/mL Assessment and Plan Assessment: Covid 19 pneumonia Acute hypoxic respiratory failure Baseline moderate to severe COPD Low-grade inflammatory response due to covert 19 Status post single shot of covid 19 vaccine moderna Status post monoclonal antibody for Covid 19 infection Plan: Continue bronchodilators IV Decadron, can be changed to oral at the time of discharge Patient is out of therapeutic benefit from IV REMdesivir Supplemental oxygen, keep oxygen saturation 90-92%, titrate oxygen down as tolerated Patient might very well need home oxygen 2 L nasal cannula Agree with discharge planning and 24-48 hours Deep breathing exercises incentive spirometry Prone positioning during sleep as much as possible Time with Patient: Greater than 30
[2020-11-13 10:46] LABS: D-Dimer 0.81 mg/L FEU (<0.60); Partial Thromboplastin Time 25.2 sec (22.0-30.0); Prothrombin Time 10.3 sec (9.0-12.0)
[2020-11-13 10:51] LABS: ALT 35 U/L (4-34); AST 45 U/L (14-36); African American GFR (CKD) >90 (>60 ml/min/1.73 sqM); Albumin 3.4 g/dL (3.5-5.0); Alkaline Phosphatase 67 U/L (38-126); Anion Gap 7 mmol/L; Blood Urea Nitrogen 24 mg/dL (7-17); Calcium 11.2 mg/dL (8.4-10.2); Carbon Dioxide 29 mmol/L (22-30); Chloride 102 mmol/L (98-107); Creatine Kinase 131 U/L (30-135); Glucose 134 mg/dL (74-99); LDH 702 U/L (313-618); Magnesium 2.1 mg/dL (1.6-2.3); Non-African American GFR(CKD) 84 (>60 ml/min/1.73 sqM); Potassium 5.2 mmol/L (3.5-5.1); Sodium 138 mmol/L (137-145); Total Bilirubin 0.5 mg/dL (0.2-1.3); Total Protein 6.1 g/dL (6.3-8.2)
[2020-11-13] MEDS: TIOTROPIUM 2.5 MCG INHALER INHALATION SCH (10:52)
[2020-11-13 11:12] LABS: C Reactive Protein 237.7 mg/L (<10.0)
[2020-11-13 15:28] VITALS: RESP 20
[2020-11-13 21:51] LABS: Ferritin 417.6 ng/mL (10.0-291.0)
[2020-11-14 08:28] LABS: Basophils % (A) 0 %; Eosinophils % (A) 0 %; HCT 42.4 % (34.0-46.0); HGB 13.9 gm/dL (11.4-16.0); Lymphocytes # (A) 0.5 k/uL (1.0-4.8); Lymphocytes % (A) 7 %; MCH 29.7 pg (25.0-35.0); MCHC 32.7 g/dL (31.0-37.0); MCV 90.7 fL (80.0-100.0); Mean Platelet Volume 7.8; Monocytes # (A) 0.3 k/uL (0-1.0); Monocytes % (A) 4 %; Neutrophils # (A) 6.2 k/uL (1.3-7.7); Neutrophils % (A) 88 %; Platelet Count 318 k/uL (150-450); RBC 4.68 m/uL (3.80-5.40); WBC 7.1 k/uL (3.8-10.6)
[2020-11-14 08:46] LABS: ALT 34 U/L (4-34); AST 39 U/L (14-36); African American GFR (CKD) >90 (>60 ml/min/1.73 sqM); Albumin 3.6 g/dL (3.5-5.0); Alkaline Phosphatase 65 U/L (38-126); Anion Gap 8 mmol/L; Blood Urea Nitrogen 26 mg/dL (7-17); C Reactive Protein 77.7 mg/L (<10.0); Carbon Dioxide 30 mmol/L (22-30); Chloride 101 mmol/L (98-107); Creatine Kinase 66 U/L (30-135); Glucose 122 mg/dL (74-99); LDH 691 U/L (313-618); Magnesium 1.9 mg/dL (1.6-2.3); Non-African American GFR(CKD) 82 (>60 ml/min/1.73 sqM); Potassium 5.2 mmol/L (3.5-5.1); Sodium 139 mmol/L (137-145); Total Bilirubin 0.5 mg/dL (0.2-1.3); Total Protein 6.4 g/dL (6.3-8.2)
[2020-11-14] MEDS: TIOTROPIUM 2.5 MCG INHALER INHALATION SCH (09:22)
[2020-11-14] MEDS: ALBUTEROL HFA INHALER INHALATION SCH ×2 (09:22→12:19)
[2020-11-14] MEDS: CHOLECALCIFEROL 25 MCG (1000 IU) TABLET PO SCH (09:35)
[2020-11-14] MEDS: FENOFIBRATE 160 MG TAB PO SCH (09:35)
[2020-11-14] MEDS: METOPROLOL TARTRATE 50 MG TAB PO SCH (09:35)
[2020-11-14] MEDS: ZINC SULFATE 220 MG CAP PO SCH (09:35)
[2020-11-14] MEDS: MULTIVITAMINS, THERA 1 EACH TAB PO SCH (09:35)
[2020-11-14] MEDS: ASCORBIC ACID 500 MG TAB PO SCH (09:35)
[2020-11-14] MEDS: DEXAMETHASONE SOD PHOSPHATE 10 MG/ML 1 ML VIAL IV SCH (09:38)
[2020-11-14 09:43] LABS: D-Dimer 0.95 mg/L FEU (<0.60); INR 0.9 (<1.2); Prothrombin Time 9.8 sec (9.0-12.0)
[2020-11-14 09:48] LABS: Partial Thromboplastin Time 21.9 sec (22.0-30.0)
[2020-11-14] MEDS ORDERED: amLODIPine 10 MG TAB PO SCH (10:15)
[2020-11-14 11:39] VITALS: BP 162/82; PULSE 67; TEMP 98
--- NOTE | 2020-11-14 14:43 | P.DS ---
Providers Date of admission: 11/11/20 11:05 Expected date of discharge: 11/14/20 Attending physician: Oral Shepard Consults: 11/11/20 11:05 Consult Physician Urgent Consulting Provider: [facility] Consult Reason/Comments: Left bundle branch block, bigeminy Do you want consulting provider notified?: Yes 11/12/20 09:22 Consult Physician Urgent Consulting Provider: Reginaldo Canales Consult Reason/Comments: covid-19 pneumonia Do you want consulting provider notified?: Yes Primary care physician: Oral Shepard Hospital Course: Final diagnosis Covid 19 pneumonia new onset left bundle branch block with frequent PVCs generalized malaise noted with nausea vomiting diarrhea dyspnea on exertion with nonproductive cough COPD hyperlipidemia hypertension mixed anxiety and depression history of pulmonary embolism's history of vertigo osteoarthritis history of appendectomy history of back surgeries history of cholecystectomy history of hysterectomy full code Discharge disposition Patient is being discharged in a stable condition with guarded prognosis to home and will continue with home care in the outpatient setting. Patient will follow-up with Dr. Shepard in the outpatient setting upon discharge. Patient also instructed to follow-up with pulmonary and cardiology next week. Patient will be discharged home on dexamethasone along with vitamin and zinc supplements, and oxygen secondary to Covid 19. Total time taken is greater than 35 minutes. Hospital course This is an 80-year-old female who recently was admitted with shortness of breath, body aches and was found to be Covid 19 positive and requiring oxygen. Patient has titrated as tolerated and is currently on 2-3 L of oxygen via nasal cannula. Patient will require home oxygen and case management making arrangements. Maintained on dexamethasone and will continue to complete the course along with vitamin C and zinc supplements and will follow up with pulmonary in the outpatient setting next week. Patient's blood pressure continued to be slightly elevated and was started on amlodipine 10 mg and instructed the patient to monitor blood pressure daily and keep a diary for primary care follow-up. Patient does have a monitor at home and will discuss with the home care nurse about Her use of the cuff as she states she has some difficulty with it at times. Currently no reports of chest pain, worsened shortness of breath, or palpitations. Patient is afebrile. No reports of nausea or vomiting and patient is tolerating diet. Patient will be discharged home today. On exam vital signs are stable. Cardio S1, S2 are muffled. Respiratory system shows diminished breath sounds at the bases with no wheezing or rhonchi noted. Abdomen is soft and nontender. Nervous system shows no focal deficits. Please refer to medication reconciliation sheet for a list of medications. Patient Condition at Discharge: Stable Plan - Discharge Summary Discharge Rx Participant: No New Discharge Prescriptions: New Dexamethasone 6 mg PO DAILY 8 Days #8 tablet amLODIPine [Norvasc] 10 mg PO DAILY 30 Days #30 tab Zinc Sulfate [Orazinc] 220 mg PO DAILY 30 Days #30 cap Ascorbic Acid [Vitamin C] 1,000 mg PO DAILY 30 Days #60 tab Acetaminophen Tab [Tylenol] 650 mg PO Q4HR PRN #30 tab PRN Reason: Fever and/ or Mild Pain Continue Fenofibric Acid (Choline) [Trilipix] 135 mg PO DAILY Cholecalciferol [Vitamin D3 (25 Mcg = 1000 Iu)] 2,000 unit PO DAILY Multivitamins, Thera [Multivitamin (formulary)] 1 tab PO DAILY Metoprolol Tartrate [Lopressor] 50 mg PO BID Tiotropium Br/Olodaterol HCl [Stiolto Respimat Inhal Patriot] 2 puff INHALATION RT-DAILY Albuterol Inhaler [Ventolin Hfa Inhaler] 2 puff INHALATION RT-QID PRN PRN Reason: Shortness Of Breath Discharge Medication List Cholecalciferol [Vitamin D3 (25 Mcg = 1000 Iu)] 2,000 unit PO DAILY 07/28/15 [History] Fenofibric Acid (Choline) [Trilipix] 135 mg PO DAILY 07/28/15 [History] Multivitamins, Thera [Multivitamin (formulary)] 1 tab PO DAILY 09/22/16 [History] Metoprolol Tartrate [Lopressor] 50 mg PO BID 09/18/17 [History] Tiotropium Br/Olodaterol HCl [Stiolto Respimat Inhal Patriot] 2 puff INHALATION RT-DAILY 10/29/19 [History] Albuterol Inhaler [Ventolin Hfa Inhaler] 2 puff INHALATION RT-QID PRN 11/11/20 [History] Acetaminophen Tab [Tylenol] 650 mg PO Q4HR PRN #30 tab 11/14/20 [Rx] Ascorbic Acid [Vitamin C] 1,000 mg PO DAILY 30 Days #60 tab 11/14/20 [Rx] Dexamethasone 6 mg PO DAILY 8 Days #8 tablet 11/14/20 [Rx] Zinc Sulfate [Orazinc] 220 mg PO DAILY 30 Days #30 cap 11/14/20 [Rx] amLODIPine [Norvasc] 10 mg PO DAILY 30 Days #30 tab 11/14/20 [Rx] Follow up Appointment(s)/Referral(s): Oral Shepard MD [Primary Care Provider] - 11/18/20 9:30 am (Televisit) [facility] [NON-STAFF] - [facility], [NON-STAFF] - 1 Week Reginaldo Canales MD [STAFF PHYSICIAN] - 1 Week (Please call for an appointment.) Sapna Burciaga MD [STAFF PHYSICIAN] - 2 Weeks (Office will call you with an appointment. ) Patient Instructions/Handouts: Coronavirus Disease 2019 (COVID-19) Activity/Diet/Wound Care/Special Instructions: Activity Limited until follow-up Follow-up with primary care provider upon discharge Follow-up with pulmonary Dr. Canales outpatient Continue with dexamethasone until finished Continue with inhalers and vitamin supplements Continue current diet Continue to isolate, where a mass, frequent handwashing, social distancing Continue with home care Continue to monitor blood pressure once daily and keep a diary for primary care follow-up Discharge Disposition: HOME WITH HOME HEALTH SERVICES
--- NOTE | 2020-11-14 14:53 | P.PN ---
Subjective Progress Note Date: 11/13/20 Principal diagnosis: Covid 19 pneumonia Ms. Mir is an 80-year-old female with a past medical history of COPD, hypertension, hyperlipidemia, PE, vertigo, arthritis, nephrolithiasis admitted to the hospital with difficulty in breathing. She is being treated for COVID 19 pneumonia. On 11/13/2020- patient was seen and examined at the bedside. She is comfortably sitting up in a chair and talking over the phone with her sister. Patient states that her breathing is improving and she feels much better. She denies having any cough. No chest pain or palpitations. No dysuria or hematuria. On reviewing her vitals are temperature of 98.1, heart rate 78 respiratory 20, b lood pressure 137 L saturating at 94% on room air. On reviewing the labs white count of 6.1, hemoglobin 13.1, lymphocyte percent is 0.4. D-dimer 0.81. Sodium 138, potassium 5.0, chloride 102, bicarb 29, BUN 24, creatinine 0.64. CRP 237.7. Active Medications Acetaminophen (Acetaminophen Tab 325 Mg Tab) 650 mg PO Q4HR PRN PRN Reason: Fever and/ or Mild Pain Last Admin: 11/11/20 20:40 Dose: 650 mg Documented by: Albuterol Sulfate (Albuterol Hfa Inhaler) 2 puff INHALATION RT-QID PRN PRN Reason: Shortness Of Breath Albuterol Sulfate (Albuterol Hfa Inhaler) 2 puff INHALATION RT-QID [facility] Ascorbic Acid (Ascorbic Acid 500 Mg Tab) 1,000 mg PO DAILY [facility] Last Admin: 11/13/20 09:43 Dose: 1,000 mg Documented by: Cholecalciferol (Cholecalciferol 25 Mcg (1000 Iu) Tablet) 50 mcg PO DAILY [facility] Last Admin: 11/13/20 09:43 Dose: 50 mcg Documented by: Dexamethasone Sodium Phosphate (Dexamethasone Sod Phosphate 10 Mg/Ml 1 Ml Vial) 6 mg IV DAILY [facility] Stop: 11/21/20 09:01 Last Admin: 11/13/20 09:43 Dose: 6 mg Documented by: Fenofibrate (Fenofibrate 160 Mg Tab) 160 mg PO DAILY [facility] Last Admin: 11/13/20 09:43 Dose: 160 mg Documented by: Metoprolol Tartrate (Metoprolol Tartrate 50 Mg Tab) 50 mg PO BID [facility] Last Admin: 11/13/20 21:14 Dose: 50 mg Documented by: Miscellaneous Information (Potassium Replacement Protocol 1 Each Misc) 1 each MISCELLANE DAILY PRN; Protocol PRN Reason: Per Protocol Miscellaneous Information (Magnesium Replacement Protocol 1 Each Misc) 1 each MISCELLANE DAILY PRN; Protocol PRN Reason: Per Protocol Multivitamins (Multivitamins, Thera 1 Each Tab) 1 each PO DAILY [facility] Last Admin: 11/13/20 09:43 Dose: 1 each Documented by: Nitroglycerin (Nitroglycerin Sl Tabs 0.4 Mg Tab) 0.4 mg SUBLINGUAL Q5M PRN PRN Reason: Chest Pain Tiotropium Erwinna (Tiotropium 2.5 Mcg Inhaler) 2 puff INHALATION RT-DAILY [facility] Last Admin: 11/13/20 10:52 Dose: 2 puff Documented by: Zinc Sulfate (Zinc Sulfate 220 Mg Cap) 220 mg PO DAILY [facility] Last Admin: 11/13/20 09:43 Dose: 220 mg Documented by: Objective - Vital Signs Vital signs: Vital Signs Temp 98 F 11/13/20 15:26 Pulse 77 11/13/20 15:26 Resp 20 11/13/20 15:26 BP 165/81 11/13/20 15:26 Pulse Ox 95 11/13/20 15:26 Intake & Output 11/12/20 11/13/20 11/13/20 18:59 06:59 18:59 Intake Total 496 20 358 Output Total 200 Balance 496 -180 358 Weight 74.6 kg Intake: IV 20 20 Invasive Line 1 20 20 Oral 476 358 Output: Urine 200 Other: Voiding Method Toilet # Voids 1 2 1 - Exam PHYSICAL EXAMINATION CONSTITUTIONAL: No apparent distress. HEENT: Head is normocephalic. Pupils are equal, round. Sclerae anicteric. CHEST EXAMINATION: Lungs are clear to auscultation. No wheeze or crackles. HEART EXAMINATION: Regular rate and rhythm. ABDOMEN: Soft, nontender. Positive bowel sounds. EXTREMITIES: 2+ peripheral pulses, no lower extremity edema and no calf tenderness. NEUROLOGIC EXAMINATION: Patient is awake, alert and oriented x3. - Labs CBC & Chem 7: 11/14/20 08:01 11/14/20 08:01 Labs: Abnormal Lab Results - Last 24 Hours (Table) 11/12/20 11/12/20 11/13/20 Range/Units 09:44 11:38 09:56 Lymphocytes # 0.4 L (1.0-4.8) k/uL Fibrinogen (200-500) mg/dL D-Dimer (<0.60) mg/L FEU Potassium (3.5-5.1) mmol/L BUN (7-17) mg/dL Glucose (74-99) mg/dL Calcium (8.4-10.2) mg/dL Ferritin 397.4 H (10.0-291.0) ng/mL AST (14-36) U/L ALT (4-34) U/L Lactate Dehydrogenase (313-618) U/L C-Reactive Protein (<10.0) mg/L Total Protein (6.3-8.2) g/dL Albumin (3.5-5.0) g/dL Procalcitonin 0.60 H (0.02-0.09) ng/mL 11/13/20 11/13/20 Range/Units 09:56 09:56 Lymphocytes # (1.0-4.8) k/uL Fibrinogen 626 H (200-500) mg/dL D-Dimer 0.81 H (<0.60) mg/L FEU Potassium 5.2 H (3.5-5.1) mmol/L BUN 24 H (7-17) mg/dL Glucose 134 H (74-99) mg/dL Calcium 11.2 H (8.4-10.2) mg/dL Ferritin (10.0-291.0) ng/mL AST 45 H (14-36) U/L ALT 35 H (4-34) U/L Lactate Dehydrogenase 702 H (313-618) U/L C-Reactive Protein 237.7 H (<10.0) mg/L Total Protein 6.1 L (6.3-8.2) g/dL Albumin 3.4 L (3.5-5.0) g/dL Procalcitonin (0.02-0.09) ng/mL Microbiology - Last 24 Hours (Table) 11/12/20 11:38 Blood Culture - Preliminary Blood No Growth after 24 hours Assessment and Plan Assessment: Assessment: Covid 19 pneumonia new onset left bundle branch block with frequent PVCs generalized malaise with nausea vomiting diarrhea - resolving Lymphopenia COPD hyperlipidemia hypertension mixed anxiety and depression history of pulmonary embolism's history of vertigo osteoarthritis history of appendectomy history of back surgeries history of cholecystectomy history of hysterectomy Plan: Covid 19 pneumonia infusion of monoclonal antibodies . She had new left bundle branch block with frequent PVCs and cardiology was consulted. She has been started on metoprolol by them. Patient to be continued on dexamethasone, zinc and vitamin C supplements. Further recommendations to come based on patient's clinical course . Anticipate discharge in the next 24-48 hours.
[2020-11-14 19:12] LABS: Ferritin 367.1 ng/mL (10.0-291.0)
== END 2020-11-14 15:00 | disposition home health service (06) | DRG 177 ==
LOC: EC 08:44 → 3SCARD 11:05
PROVIDERS: ADMIT Family Medicine; ATTEND Family Medicine
PROC: 3E0330M Introduction of Antineoplastic, Monoclonal Antibody, into Peripheral Vein, Percutaneous Approach (ICD-10-PCS; principal; 2020-11-11)
DX: U07.1 COVID-19 (principal); J12.82 Pneumonia due to coronavirus disease 2019; J96.01 Acute respiratory failure with hypoxia; J44.0 Chronic obstructive pulmonary disease with (acute) lower respiratory infection; I44.7 Left bundle-branch block, unspecified; E78.5 Hyperlipidemia, unspecified; I10 Essential (primary) hypertension; M19.90 Unspecified osteoarthritis, unspecified site; F41.9 Anxiety disorder, unspecified; I49.3 Ventricular premature depolarization; F32.9 Major depressive disorder, single episode, unspecified; D72.810 Lymphocytopenia; I25.10 Atherosclerotic heart disease of native coronary artery without angina pectoris; Z87.891 Personal history of nicotine dependence; E55.9 Vitamin D deficiency, unspecified; Z79.899 Other long term (current) drug therapy; Z86.711 Personal history of pulmonary embolism; Z87.442 Personal history of urinary calculi; Z90.49 Acquired absence of other specified parts of digestive tract; Z90.710 Acquired absence of both cervix and uterus; Z98.890 Other specified postprocedural states; Z88.5 Allergy status to narcotic agent; Z88.0 Allergy status to penicillin; Z88.8 Allergy status to other drugs, medicaments and biological substances; Z88.1 Allergy status to other antibiotic agents; Z91.040 Latex allergy status; Z80.3 Family history of malignant neoplasm of breast
CPT/HCPCS: 36415; 71045; 71046; 80053; 80061; 82550; 82728; 83615; 83735; 84145; 84484; 85025; 85379; 85384; 85610; 85730; 86140; 87040; 87070; 87205; 87635; 93005; 93308; 94640; 99291

== ENCOUNTER 2021-03-25 18:30 | Emergency (ER) | payer MEDICARE ==
[2021-03-25 19:13] VITALS: TEMP 98
--- NOTE | 2021-03-25 20:13 | US ---
EXAMINATION TYPE: US venous doppler duplex LE LT DATE OF EXAM: 03/25/2021 7:57 PM COMPARISON: NONE CLINICAL HISTORY: pain. Pain x 1 day. H DVT and PE. Patient does not take blood thinners. SIDE PERFORMED: Left TECHNIQUE: The lower extremity deep venous system is examined utilizing real time linear array sonog ángel with graded compression, doppler sonography and color-flow sonography. VESSELS IMAGED: Common Femoral Vein Deep Femoral Vein Greater Saphenous Vein * Femoral Vein Popliteal Vein Small Saphenous Vein * Proximal Calf Veins (* superficial vessels) Left Leg: No evidence of DVT in veins imaged at this time. At patient's area of concern, there appea r to be tortuous superficial veins with internal echoes. These veins appear to show minimal color fl ow and do not compress. These vessels are just below the knee at the medial aspect of the upper calf . IMPRESSION: No evidence of deep vein thrombosis in the left leg. There is some superficial vein thro mbosis with varices below the knee.
[2021-03-25] MEDS ORDERED: CLINDAMYCIN 150 MG CAP PO STA (20:43)
--- NOTE | 2021-03-25 20:48 | ED ---
General Adult HPI - General Chief complaint: Extremity Injury, Lower Stated complaint: leg pain Time Seen by Provider: 03/25/21 20:28 Source: patient Mode of arrival: ambulatory Limitations: no limitations - History of Present Illness Initial comments: Dictation was produced using [employer] dictation software. please excuse any grammatical, word or spelling errors. Chief Complaint: 80-year-old female presents with multiple days of painful red left lower extremity History of Present Illness: 80-year-old female over the last couple days she is noted worsening swelling and redness and pain to the view portion of her left popliteal area. She points to her left medial proximal calf she reports that she has had history of DVTs in the past. She denies any chest pain or shortness of breath. Denies any fevers. She currently does not take any anticoagulation medications. The ROS documented in this emergency department record has been reviewed and confirmed by me. Those systems with pertinent positive or negative responses have been documented in the HPI. All other systems are other negative and/or noncontributory. PHYSICAL EXAM: General Impression: Alert and oriented x3, not in acute distress HEENT: Normocephalic atraumatic, extra-ocular movements intact, pupils equal and reactive to light bilaterally, mucous membranes moist. Cardiovascular: Heart regular rate and rhythm Chest: Able to complete full sentences, no retractions, no tachypnea Abdomen: abdomen soft, non-tender, non-distended, no organomegaly Musculoskeletal: Pulses present and equal in all extremities, no peripheral edema Motor: no focal deficits noted Neurological: CN II-XII grossly intact, no focal motor or sensory deficits noted Skin: Erythematous, warm and palpable area to the left proximal medial calf Psych: Normal affect and mood ED course: 80-year-old female presents with erythematous red swollen proximal calf. Vital signs upon arrival are within acceptable limits. Patient has no chest pain or shortness of breath. Triage ordered a ultrasound venous Doppler duplex of the lower extremity and the left side. As no evidence of deep venous thrombosis in the left leg but there is some superficial vein thrombosis. There is concern that perhaps this is infected. Patient given oral clindamycin and clindamycin prescription. She is told that she is to follow-up with her primary care doctor for repeat lower showed a ultrasound to determine any sort of extension into the deep venous system. Patient understanding and agreeable to plan. - Related Data Home Medications Medication Instructions Recorded Confirmed Cholecalciferol [Vitamin D3 (25 2,000 unit PO DAILY 07/28/15 11/11/20 Mcg = 1000 Iu)] Fenofibric Acid (Choline) 135 mg PO DAILY 07/28/15 11/11/20 [Trilipix] Multivitamins, Thera [Multivitamin 1 tab PO DAILY 09/22/16 11/11/20 (formulary)] Metoprolol Tartrate [Lopressor] 50 mg PO BID 09/18/17 11/11/20 Tiotropium Br/Olodaterol HCl 2 puff INHALATION RT-DAILY 10/29/19 11/11/20 [Stiolto Respimat Inhal [place]] Albuterol Inhaler [Ventolin Hfa 2 puff INHALATION RT-QID PRN 11/11/20 11/11/20 Inhaler] Previous Rx's Medication Instructions Recorded Acetaminophen Tab [Tylenol] 650 mg PO Q4HR PRN #30 tab 11/14/20 Ascorbic Acid [Vitamin C] 1,000 mg PO DAILY 30 Days #60 tab 11/14/20 Dexamethasone 6 mg PO DAILY 8 Days #8 tablet 11/14/20 Zinc Sulfate [Orazinc] 220 mg PO DAILY 30 Days #30 cap 11/14/20 amLODIPine [Norvasc] 10 mg PO DAILY 30 Days #30 tab 11/14/20 clindamycin HCL [Cleocin] 300 mg PO Q8H 5 Days #15 cap 03/25/21 Allergies Allergy/AdvReac Type Severity Reaction Status Date / Time ciprofloxacin [From Cipro] Allergy Swelling Verified 03/25/21 19:07 ciprofloxacin HCl Allergy Swelling Verified 03/25/21 19:07 [From Cipro] ezetimibe [From Vytorin] Allergy Unknown Verified 03/25/21 19:07 iodine Allergy Unknown Verified 03/25/21 19:07 latex Allergy red skin Verified 03/25/21 19:07 Penicillins Allergy Rash/Hives Verified 03/25/21 19:07 Quinolones Allergy Unknown Verified 03/25/21 19:07 simvastatin [From Vytorin] Allergy Unknown Verified 03/25/21 19:07 Sulfa (Sulfonamide Allergy Itching Verified 03/25/21 19:07 Antibiotics) codeine AdvReac Nausea & Verified 03/25/21 19:07 Vomiting & Diarrhea bandaid Allergy Unknown Uncoded 03/25/21 19:07 Review of Systems ROS Statement: Those systems with pertinent positive or pertinent negative responses have been documented in the HPI. ROS Other: All systems not noted in ROS Statement are negative. Past Medical History Past Medical History: COPD, Hyperlipidemia, Hypertension, Pulmonary Embolus (PE) Additional Past Medical History / Comment(s): vertigo, arthritis, kidney stones History of Any Multi-Drug Resistant Organisms: None Reported Past Surgical History: Appendectomy, Back Surgery, Cholecystectomy, Hysterectomy Additional Past Surgical History / Comment(s): benign cyst from breast, fatty tumor removed lt shoulder Past Anesthesia/Blood Transfusion Reactions: No Reported Reaction Additional Past Anesthesia/Blood Transfusion Reaction / Comment(s): claustrophobic Past Psychological History: Anxiety Smoking Status: Former smoker Past Alcohol Use History: Rare Past Drug Use History: None Reported - Past Family History Sister(s) Family Medical History: Cancer Additional Family Medical History / Comment(s): breast cancer General Exam Limitations: no limitations Course Vital Signs 03/25/21 19:07 Temperature 98.0 F Pulse Rate 70 Respiratory 16 Rate Blood Pressure 184/80 O2 Sat by Pulse 100 Oximetry Disposition Clinical Impression: Superficial thrombophlebitis Disposition: HOME SELF-CARE Condition: Fair Instructions (If sedation given, give patient instructions): Superficial Thrombophlebitis (ED) Additional Instructions: Please seek immediate medical attention if you develops worsening pain, shortness of breath or chest pain. It's important that you follow up with your primary care doctor for repeat ultrasound of the left lower extremity to evaluate for possible extension into the deep venous system. Take [id number] analgesics for your pain. Prescriptions: clindamycin HCL [Cleocin] 300 mg PO Q8H 5 Days #15 cap Is patient prescribed a controlled substance at d/c from ED?: No Referrals: Oral Shepard MD [Primary Care Provider] - 1-2 days
[2021-03-25 21:20] VITALS: BP 154/74; PULSE 87; RESP 15
== END 2021-03-25 21:19 | disposition home or self-care (01) ==
LOC: EC 18:30
DX: I80.02 Phlebitis and thrombophlebitis of superficial vessels of left lower extremity (principal); E78.5 Hyperlipidemia, unspecified; I10 Essential (primary) hypertension; F41.9 Anxiety disorder, unspecified; J44.9 Chronic obstructive pulmonary disease, unspecified; Z86.718 Personal history of other venous thrombosis and embolism; Z88.0 Allergy status to penicillin; Z88.1 Allergy status to other antibiotic agents; Z88.2 Allergy status to sulfonamides; Z88.5 Allergy status to narcotic agent; Z91.040 Latex allergy status; Z86.711 Personal history of pulmonary embolism; Z87.442 Personal history of urinary calculi; Z90.49 Acquired absence of other specified parts of digestive tract; Z90.710 Acquired absence of both cervix and uterus; Z87.891 Personal history of nicotine dependence
CPT/HCPCS: 99283

== ENCOUNTER 2021-06-18 18:04 | Emergency (ER) | payer MEDICARE ==
[2021-06-18 18:14] VITALS: RESP 18; TEMP 97.8
[2021-06-18] MEDS ORDERED: DIPH,PERTUS(ACELL)TETVAC-LF 0.5 ML VIAL IM ONE (18:45)
--- NOTE | 2021-06-18 19:29 | ED ---
General Adult HPI - General Chief complaint: Extremity Injury, Upper Stated complaint: Rt Hand Lac Time Seen by Provider: 06/18/21 18:19 Source: patient Mode of arrival: ambulatory Limitations: no limitations - History of Present Illness Initial comments: 80-year-old female presents to the emergency room for a chief complaint of skin tear to the right hand. Patient states she was loading a bedframe into the car and it fell on her right hand and tore her skin. Denies any pain. Tetanus not up-to-date.Patient has no other complaints at this time including shortness of breath, chest pain, abdominal pain, nausea or vomiting, headache, or visual changes. - Related Data Home Medications Medication Instructions Recorded Confirmed Cholecalciferol [Vitamin D3 (25 2,000 unit PO DAILY 07/28/15 11/11/20 Mcg = 1000 Iu)] Fenofibric Acid (Choline) 135 mg PO DAILY 07/28/15 11/11/20 [Trilipix] Multivitamins, Thera [Multivitamin 1 tab PO DAILY 09/22/16 11/11/20 (formulary)] Metoprolol Tartrate [Lopressor] 50 mg PO BID 09/18/17 11/11/20 Tiotropium Br/Olodaterol HCl 2 puff INHALATION RT-DAILY 10/29/19 11/11/20 [Stiolto Respimat Inhal [place]] Albuterol Inhaler [Ventolin Hfa 2 puff INHALATION RT-QID PRN 11/11/20 11/11/20 Inhaler] Previous Rx's Medication Instructions Recorded Acetaminophen Tab [Tylenol] 650 mg PO Q4HR PRN #30 tab 11/14/20 Ascorbic Acid [Vitamin C] 1,000 mg PO DAILY 30 Days #60 tab 11/14/20 Dexamethasone 6 mg PO DAILY 8 Days #8 tablet 11/14/20 Zinc Sulfate [Orazinc] 220 mg PO DAILY 30 Days #30 cap 11/14/20 amLODIPine [Norvasc] 10 mg PO DAILY 30 Days #30 tab 11/14/20 clindamycin HCL [Cleocin] 300 mg PO Q8H 5 Days #15 cap 03/25/21 Allergies Allergy/AdvReac Type Severity Reaction Status Date / Time ciprofloxacin [From Cipro] Allergy Swelling Verified 06/18/21 18:10 ciprofloxacin HCl Allergy Swelling Verified 06/18/21 18:10 [From Cipro] ezetimibe [From Vytorin] Allergy Unknown Verified 06/18/21 18:10 iodine Allergy Unknown Verified 06/18/21 18:10 latex Allergy red skin Verified 06/18/21 18:10 Penicillins Allergy Rash/Hives Verified 06/18/21 18:10 Quinolones Allergy Unknown Verified 06/18/21 18:10 simvastatin [From Vytorin] Allergy Unknown Verified 06/18/21 18:10 Sulfa (Sulfonamide Allergy Itching Verified 06/18/21 18:10 Antibiotics) codeine AdvReac Nausea & Verified 06/18/21 18:10 Vomiting & Diarrhea bandaid Allergy Unknown Uncoded 03/25/21 19:07 Review of Systems ROS Statement: Those systems with pertinent positive or pertinent negative responses have been documented in the HPI. ROS Other: All systems not noted in ROS Statement are negative. Past Medical History Past Medical History: COPD, Hyperlipidemia, Hypertension, Pulmonary Embolus (PE) Additional Past Medical History / Comment(s): vertigo, arthritis, kidney stones History of Any Multi-Drug Resistant Organisms: None Reported Past Surgical History: Appendectomy, Back Surgery, Cholecystectomy, Hysterectomy Additional Past Surgical History / Comment(s): benign cyst from breast, fatty tumor removed lt shoulder Past Anesthesia/Blood Transfusion Reactions: No Reported Reaction Additional Past Anesthesia/Blood Transfusion Reaction / Comment(s): claustrophobic Past Psychological History: Anxiety Smoking Status: Former smoker Past Alcohol Use History: Rare Past Drug Use History: None Reported - Past Family History Sister(s) Family Medical History: Cancer Additional Family Medical History / Comment(s): breast cancer General Exam Limitations: no limitations General appearance: alert, in no apparent distress Head exam: Present: atraumatic Eye exam: Present: normal appearance, PERRL, EOMI. Absent: scleral icterus, conjunctival injection ENT exam: Present: normal exam, mucous membranes moist Neck exam: Present: normal inspection, full ROM. Absent: tenderness Respiratory exam: Present: normal lung sounds bilaterally. Absent: respiratory distress, wheezes Cardiovascular Exam: Present: regular rate, normal rhythm, normal heart sounds Extremities exam: Present: full ROM (Full range of motion of the right hand), normal capillary refill (Capillary refill less than 2 seconds, radial pulse 2+), other (Skin tear to the dorsum of the right hand.) Neurological exam: Present: alert Course Vital Signs 06/18/21 06/18/21 18:10 19:14 Temperature 97.8 F Pulse Rate 98 57 L Respiratory 18 18 Rate Blood Pressure 192/89 175/80 O2 Sat by Pulse 98 97 Oximetry Medical Decision Making - Medical Decision Making Wound is irrigated with saline pressure irrigation. Steri-Strips applied. Tetanus updated. Patient will follow up with primary care and return for any worsening symptoms. Disposition Clinical Impression: Skin tear Disposition: HOME SELF-CARE Condition: Good Instructions (If sedation given, give patient instructions): Skin Tear (ED) Additional Instructions: Please keep area clean and monitor for signs of infection. Follow-up with primary care. Return to the emergency room for any worsening symptoms. Is patient prescribed a controlled substance at d/c from ED?: No Referrals: Oral Shepard MD [Primary Care Provider] - 1-2 days Time of Disposition: 19:29
[2021-06-18 19:30] VITALS: BP 175/80; PULSE 57
== END 2021-06-18 19:35 | disposition home or self-care (01) ==
LOC: EC 18:04
DX: S61.411A Laceration without foreign body of right hand, initial encounter (principal); I10 Essential (primary) hypertension; E78.5 Hyperlipidemia, unspecified; Z79.52 Long term (current) use of systemic steroids; J44.9 Chronic obstructive pulmonary disease, unspecified; Z79.51 Long term (current) use of inhaled steroids; Z79.899 Other long term (current) drug therapy; Z86.711 Personal history of pulmonary embolism; Z87.891 Personal history of nicotine dependence; Z80.3 Family history of malignant neoplasm of breast; Z88.0 Allergy status to penicillin; Z88.1 Allergy status to other antibiotic agents; Z88.2 Allergy status to sulfonamides; Z88.5 Allergy status to narcotic agent; W20.8XXA Other cause of strike by thrown, projected or falling object, initial encounter
CPT/HCPCS: 90471; 90715; 99283

== ENCOUNTER → 2021-12-17 | Outpatient (CLI) | payer MEDICARE ==
--- NOTE | 2021-12-17 22:23 | BD ---
EXAMINATION TYPE: Axial Bone Density DATE OF EXAM: 12/17/2021 COMPARISON: DEXA bone scan 2018 CLINICAL HISTORY: 81 years year old Female. 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 History of Fracture in Adulthood: NO Secondary Osteoporosis: 1. Type 1 Diabetes: NO 2. Hyperthyroidism: NO 3. Menopause before 45: YES AGE 39 4. Malnutrition: NO 5. Chronic liver disease: NO Rheumatoid Arthritis: YES Current Tobacco Use: NO RISK FACTORS HISTORY OF: Hip Fracture (Right/Left): NO Spine Fracture: NO History of Wrist Fracture: NO Surgery to Spine/Hip(right/left)/Wrist (right/left): NO Family History of Osteoporosis: NO Active: YES Diet low in dairy products/other sources of calcium: NO Postmenopausal woman: YES Take estrogen and/or progesterone medications: NO Lost more than 2 inches in height since high school: YES Frequent falls: NO Poor Health: NO Hyperparathyroidism: NO Adrenal Insufficiency: NO MEDICATIONS: Prednisone or other steroids: NO Thyroid Medications: NO Osteoporosis Medications: NO Additional Medications: TRILOGY, CHOLESTEROL MEDS, BP MEDS, MULTI VIT, VIT D Additional History: EXAM MEASUREMENTS: Bone mineral densitometry was performed using the [employer] software System. Bone mineral density as measured about the Lumbar spine is: ----- L1-L4(G/cm2): 1.109 T Score Values are as follows: ----- L1: -0.5 ----- L2: -1.0 ----- L3: -0.2 ----- L4: -0.9 ----- L1-L4: -0.6 BASELINE OF SPINE Bone mineral density about the R hip (g/cm2): 0.890 Bone mineral density about the L hip (g/cm2): 0.946 T Score values are as follows: -----R Neck: -1.1 -----L Neck: -0.7 -----R Total: -0.5 -----L Total: -0.4 Bone mineral density has: DECREASED 7.7% since study of: 08/02/2019 FRAX%s: The graph provided illustrates a 17.2% chance for a major osteoporotic fx and a 4.3% chance f or the hips probability for fx in 10 years time. IMPRESSION: Osteopenia (T Score between -2.5 and -1). There is slightly increased risk of fracture and the patient may be considered for treatment. Re-Screen 2-5 years. NOTE: T-SCORE=SD OF THE YOUNG ADULT MEAN.
--- NOTE | 2021-12-18 14:01 | MM ---
Reason for exam: screening (asymptomatic). Last mammogram was performed 1 year and 2 months ago. History: Patient is postmenopausal. Family history of premenopausal breast cancer in sister at age 40. Benign core biopsy of the right breast, January 31, 1997. Cyst aspiration of the left breast. Core biopsy of the left breast. Core biopsy of the right breast. 2 excisional biopsies of the left breast. Excisional biopsy of the right breast. Took estrogen for 5 years beginning at age 39. Took progesterone for 5 years beginning at age 39. Physical Findings: A clinical breast exam by your physician is recommended on an annual basis and results should be correlated with mammographic findings. MG 3D Screening Mammo W/Cad Bilateral CC and MLO view(s) were taken. Prior study comparison: October 24, 2020, bilateral MG 3d screening mammo w/cad. October 12, 2019, bilateral MG 3d screening mammo w/cad. There are scattered fibroglandular densities. No significant changes when compared with prior studies. ASSESSMENT: Benign, BI-RAD 2 RECOMMENDATION: Routine screening mammogram of both breasts in 1 year.
== END | disposition home or self-care (01) ==
LOC: RADMAMWWP 08:43
PROVIDERS: ATTEND Family Medicine
DX: Z12.31 Encounter for screening mammogram for malignant neoplasm of breast (principal); M85.89 Other specified disorders of bone density and structure, multiple sites; Z78.0 Asymptomatic menopausal state; Z80.3 Family history of malignant neoplasm of breast
CPT/HCPCS: 77063; 77067; 77080

== ENCOUNTER → 2022-07-16 | Outpatient (CLI) | payer MEDICARE ==
--- NOTE | 2022-07-16 11:31 | US ---
EXAMINATION TYPE: US duplex aorta DATE OF EXAM: 07/16/2022 COMPARISON: NONE CLINICAL HISTORY: I71.40 Abdominal aortic aneurysm, without rupture, unspecifi. TECHNIQUE: Multiple sonographic images of the abdominal aorta are obtained. FINDINGS: EXAM MEASUREMENTS: Abdominal Aorta: Proximal: 2.6 cm Mid: 1.8 cm Distal: 2.2 cm Bifurcation: Right: 1.1cm Left 0.9cm SIMONIZER NOTES: Ectatic aorta. IMPRESSION: 1. No evidence of aortic aneurysm. 2. Mild abdominal aorta ectasia.
== END | disposition home or self-care (01) ==
LOC: RADUSWWP 10:45
PROVIDERS: ATTEND Family Medicine
DX: I77.811 Abdominal aortic ectasia (principal)
CPT/HCPCS: 93979

== ENCOUNTER → 2022-12-20 | Outpatient (CLI) | payer MEDICARE ==
--- NOTE | 2022-12-21 19:22 | MM ---
Reason for Exam: Screening (asymptomatic). Last mammogram was performed 1 year(s) and 1 month(s) ago. Patient History: Menarche at age 13. First Full-Term at age 16. Right ovary removed at age 39. Hysterectomy at age 39. Postmenopausal. Estrogen for 5 years from age 39 until age 44. Progesterone for 5 years from age 39 until age 44. Core Biopsy on the Right side. Core Biopsy on the Left side. Excisional Biopsy on the Right side. Excisional Biopsy on the Left side. Excisional Biopsy on the Left side. Cyst Aspiration on the Left side. 01/31/1997, Benign Core Biopsy on the right side. Sister had breast cancer, age 40. Risk Values: Maggie 5 year model risk: 3.8%. NCI Lifetime model risk: 4.7%. Prior Study Comparison: 10/12/2019 Bilateral Screening Mammogram, [facility]. 10/24/2020 Bilateral Screening Mammogram, [facility]. 12/17/2021 Bilateral Screening Mammogram, [facility]. Tissue Density: There are scattered fibroglandular densities. Findings: Analyzed By CAD. Unchanged focal asymmetry upper outer quadrant left breast anterior depth. Chronic nodularity central outer aspect of the right breast. Scattered benign oil cyst calcifications on both sides. There is no suspicious group of microcalcifications or new suspicious mass in either breast. Overall Assessment: Benign, BI-RAD 2 Management: Screening Mammogram of both breasts in 1 year. . Patient should continue monthly self-breast exams. A clinical breast exam by your physician is recommended on an annual basis. This exam should not preclude additional follow-up of suspicious palpable abnormalities. Note on Maggie scores and lifetime risk: 1. A Maggie score greater than 3% is considered moderate risk. If this is the case, consider specialist referral to assess eligibility for a risk reducing agent. 2. If overall lifetime risk for the development of breast cancer is 20% or higher, the patient may qualify for future screening with alternating mammogram and breast MRI. Electronically signed and approved by: Yary Castellon M.D. Radiologist
== END | disposition home or self-care (01) ==
LOC: RADMAMWWP 14:00
PROVIDERS: ATTEND Family Medicine
DX: Z12.31 Encounter for screening mammogram for malignant neoplasm of breast (principal); Z78.0 Asymptomatic menopausal state; Z80.3 Family history of malignant neoplasm of breast
CPT/HCPCS: 77063; 77067

== ENCOUNTER → 2023-02-09 | Day surgery (SDC) | payer MEDICARE ==
[~2023-02-09] MED LIST changes: -LIDOCAINE 1% (10MG/ML) FOR IV START INTRADERMA PRN; +LIDOCAINE 2% INJ 20 MG/ML (2 ML VIAL) ONE; +PROPOFOL 10 MG/ML 20 ML VIAL IV ONE
[2023-02-09 08:55] VITALS: TEMP 98.3
--- NOTE | 2023-02-09 09:18 | P.GSHP ---
History of Present Illness H&P Date: 02/09/23 CHIEF COMPLAINT: Colon screen HISTORY OF PRESENT ILLNESS: The patient is a 82-year-old female who presents for colon screen. Lower endoscopy was offered for further evaluation and management. PAST MEDICAL HISTORY: Please see list. PAST SURGICAL HISTORY: Please see list. MEDICATIONS: Please see list. ALLERGIES: Please see list. SOCIAL HISTORY: No illicit drug use FAMILY HISTORY: No reports of Crohn disease or ulcerative colitis. REVIEW OF ORGAN SYSTEMS: CONSTITUTIONAL: No reports of fevers or chills. PHYSICAL EXAM: VITAL SIGNS: Stable GENERAL: Well-developed pleasant in no acute distress. HEENT: No scleral icterus. Extraocular movements grossly intact. Moist buccal mucosa. NECK: Supple without lymphadenopathy. CHEST: Unlabored respirations. Equal bilateral excursions. CARDIOVASCULAR: Regular rate and rhythm. Distal 2+ pulses. ABDOMEN: Soft, nontender, nondistended. MUSCULOSKELETAL: No clubbing, cyanosis, or edema. ASSESSMENT: 1. Colon screen. PLAN: 1. Recommend proceeding with a lower endoscopy Past Medical History Past Medical History: COPD, Hyperlipidemia, Hypertension, Pulmonary Embolus (PE) Additional Past Medical History / Comment(s): vertigo, arthritis, kidney stones History of Any Multi-Drug Resistant Organisms: None Reported Past Surgical History: Appendectomy, Back Surgery, Breast Surgery, Cholecystectomy, Hysterectomy Additional Past Surgical History / Comment(s): benign cyst from breast, fatty tumor removed lt shoulder Past Anesthesia/Blood Transfusion Reactions: No Reported Reaction Additional Past Anesthesia/Blood Transfusion Reaction / Comment(s): claustrophobic Smoking Status: Former smoker - Past Family History Sister(s) Family Medical History: Cancer Additional Family Medical History / Comment(s): breast cancer Medications and Allergies Home Medications Medication Instructions Recorded Confirmed Type Cholecalciferol [Vitamin D3 (25 2,000 unit PO DAILY 07/28/15 02/09/23 History Mcg = 1000 Iu)] Fenofibric Acid (Choline) 135 mg PO DAILY 07/28/15 02/09/23 History [Trilipix] Multivitamins, Thera [Multivitamin 1 tab PO DAILY 09/22/16 02/09/23 History (formulary)] Metoprolol Tartrate [Lopressor] 50 mg PO BID 09/18/17 02/09/23 History Albuterol Inhaler [Ventolin Hfa 2 puff INHALATION RT-QID PRN 11/11/20 02/09/23 History Inhaler] Acetaminophen Tab [Tylenol] 650 mg PO Q4HR PRN #30 tab 11/14/20 02/09/23 Rx Ascorbic Acid [Vitamin C] 1,000 mg PO DAILY 30 Days #60 tab 11/14/20 02/09/23 Rx Zinc Sulfate [Orazinc] 220 mg PO DAILY 30 Days #30 cap 11/14/20 02/09/23 Rx Fluticasone/Umeclidin/Vilanter 1 puff INHALATION DAILY 02/04/23 02/09/23 History [Trelegy Ellipta 100-62.5-25] Allergies Allergy/AdvReac Type Severity Reaction Status Date / Time ciprofloxacin [From Cipro] Allergy Swelling Verified 06/18/21 18:10 ciprofloxacin HCl Allergy Swelling Verified 06/18/21 18:10 [From Cipro] ezetimibe [From Vytorin] Allergy Unknown Verified 06/18/21 18:10 iodine Allergy Unknown Verified 06/18/21 18:10 latex Allergy red skin Verified 06/18/21 18:10 Penicillins Allergy Rash/Hives Verified 06/18/21 18:10 Quinolones Allergy Unknown Verified 02/04/23 09:37 simvastatin [From Vytorin] Allergy Unknown Verified 06/18/21 18:10 Sulfa (Sulfonamide Allergy Itching Verified 06/18/21 18:10 Antibiotics) codeine AdvReac Nausea & Verified 06/18/21 18:10 Vomiting & Diarrhea bandaid Allergy Unknown Uncoded 03/25/21 19:07 Surgical - Exam Vital Signs Temp Pulse Resp BP Pulse Ox 98.3 F 58 L 16 183/102 97 02/09/23 08:53 02/09/23 08:53 02/09/23 08:53 02/09/23 08:53 02/09/23 08:53
[2023-02-09 09:48] VITALS: RESP 18
--- NOTE | 2023-02-09 09:49 | P.PCN ---
Date of Procedure: 02/09/23 Description of Procedure: PREOPERATIVE DIAGNOSIS: Positive abnormal stool study antigen test Colonoscopy screening. POSTOPERATIVE DIAGNOSIS: External hemorrhoids. Sigmoid diverticulosis Colon stricture, sigmoid OPERATION: Colonoscopy to the sigmoid colon, incomplete SURGEON: Lorrie Carballo MD. ANESTHESIA: MAC. INDICATIONS: The patient is a 82-year-old female who presents with abnormal stool antigen test for colon adenoma. Benefits and risks were described and informed consent was obtained. DESCRIPTION OF PROCEDURE: The patient had undergone Sutab prep. She had been brought into the operating room and laid in the left lateral decubitus position. After adequate intravenous sedation, the rectum was examined with 2% lidocaine jelly. External hemorrhoids were encountered. The rectal tone was loose. No lesions were palpated in the rectal vault. An Olympus colonoscope was advanced along the rectum to a very tortuous sigmoid colon with stricture identified at 30 cm. The scope was then exchanged for a pediatric colonoscope. Despite multiple maneuvers, the sigmoid colon had severe tortuosity preventing further advancement of scope. The scope was passed to 30 cm from the anal verge. No evidence of polyps were identified. As the patient posed high risk for perforation with persistence of the procedure, the procedure was discontinued. The colon was desufflated. The patient had tolerated the procedure well. Withdrawal time was over 6 minutes. FINDINGS: [place] preparation quality scale 1 (1-5) Tortuous sigmoid colon with stricture preventing further advancement of the scope. External prolapsed hemorrhoids. Scope advanced to sigmoid colon at 30 cm. Study limited due to stricture of sigmoid colon RECOMMENDATIONS: Completion of colonoscopy evaluation with barium enema. Plan - Discharge Summary Discharge Rx Participant: No New Discharge Prescriptions: No Action RX: Fenofibric Acid (Choline) [Trilipix] 135 mg PO DAILY RX: Cholecalciferol [Vitamin D3 (25 Mcg = 1000 Iu)] 2,000 unit PO DAILY RX: Multivitamins, Thera [Multivitamin (formulary)] 1 tab PO DAILY RX: Metoprolol Tartrate [Lopressor] 50 mg PO BID RX: Albuterol Inhaler [Ventolin Hfa Inhaler] 2 puff INHALATION RT-QID PRN PRN Reason: Shortness Of Breath RX: Zinc Sulfate [Orazinc] 220 mg PO DAILY 30 Days #30 cap RX: Ascorbic Acid [Vitamin C] 1,000 mg PO DAILY 30 Days #60 tab Fluticasone/Umeclidin/Vilanter [Trelegy Ellipta 100-62.5-25] 1 puff INHALATION DAILY RX: Acetaminophen Tab [Tylenol] 650 mg PO Q4HR PRN #30 tab PRN Reason: Fever and/ or Mild Pain Discharge Medication List RX: Cholecalciferol [Vitamin D3 (25 Mcg = 1000 Iu)] 2,000 unit PO DAILY 07/28/15 [History] RX: Fenofibric Acid (Choline) [Trilipix] 135 mg PO DAILY 07/28/15 [History] RX: Multivitamins, Thera [Multivitamin (formulary)] 1 tab PO DAILY 09/22/16 [History] RX: Metoprolol Tartrate [Lopressor] 50 mg PO BID 09/18/17 [History] RX: Albuterol Inhaler [Ventolin Hfa Inhaler] 2 puff INHALATION RT-QID PRN 11/11/20 [History] RX: Acetaminophen Tab [Tylenol] 650 mg PO Q4HR PRN #30 tab 11/14/20 [Rx] RX: Ascorbic Acid [Vitamin C] 1,000 mg PO DAILY 30 Days #60 tab 11/14/20 [Rx] RX: Zinc Sulfate [Orazinc] 220 mg PO DAILY 30 Days #30 cap 11/14/20 [Rx] Fluticasone/Umeclidin/Vilanter [Trelegy Ellipta 100-62.5-25] 1 puff INHALATION DAILY 02/04/23 [History]
[2023-02-09 09:58] VITALS: BP 191/79; PULSE 58
--- NOTE | 2023-02-09 13:58 | FL ---
EXAMINATION TYPE: FL barium enema DATE OF EXAM: 02/09/2023 COMPARISON: None HISTORY: 82-year-old female incomplete colonoscopy, sigmoid stricture, no biopsies, alternating const ipation and diarrhea for 3 months. TECHNIQUE: A single contrast barium enema study is performed. A total of 2 minutes 20 seconds of fl uoroscopic time was utilized during procedure and 44 images obtained. Total dose area product (DAP) in uGy*m?, mGy*cm? (or similar): 15. FINDINGS: Apparel Fashion Designer view of the abdomen shows overall non-obstructive bowel gas pattern. Residual promin ent air is present throughout the colon. Decision is made to proceed with a single contrast exam. There is extensive sigmoid diverticulosis redundancy of the mid to distal sigmoid limits the evaluati on. No obvious obstruction to the passage of contrast. A couple focal annular areas of narrowing, one at the junction of the descending and sigmoid colon and one just below the splenic flexure of the co ben adequately opens up later in the exam. There is some reflux of contrast into a normal-appearing terminal ileum. There is limitation in the degree of opacification due to repeated displacement of the rectal tube an d contrast leakage. No suspicious filling defect is identified. Cholecystectomy clips. IMPRESSION: 1. Exam limited due to repeated displacement of a rectal tube and contrast leakage. 2. No obvious annular constricting lesion/stricture or abnormal filling defect is seen allowing for t he exam limitations. 3. Extensive sigmoid diverticulosis.
== END | disposition home or self-care (01) ==
LOC: ORWHC2ENDO 08:29
PROVIDERS: ATTEND Surgery Plastic and Reconstructive Surgery
DX: K57.30 Diverticulosis of large intestine without perforation or abscess without bleeding (principal); K64.4 Residual hemorrhoidal skin tags; K56.699 Other intestinal obstruction unspecified as to partial versus complete obstruction; K56.2 Volvulus; J44.9 Chronic obstructive pulmonary disease, unspecified; I10 Essential (primary) hypertension; E78.5 Hyperlipidemia, unspecified; Z86.711 Personal history of pulmonary embolism; Z79.899 Other long term (current) drug therapy; Z87.442 Personal history of urinary calculi; Z90.49 Acquired absence of other specified parts of digestive tract; Z90.710 Acquired absence of both cervix and uterus; Z90.89 Acquired absence of other organs; Z87.891 Personal history of nicotine dependence; Z80.3 Family history of malignant neoplasm of breast
CPT/HCPCS: 74270; 45330; J2704; J2001

== ENCOUNTER → 2023-04-27 | Outpatient (CLI) | payer MEDICARE ==
[~2023-04-27] MED LIST changes: -LACTATED RINGERS 1,000 ML IV SCH; -LIDOCAINE 2% INJ 20 MG/ML (2 ML VIAL) ONE; -PROPOFOL 10 MG/ML 20 ML VIAL IV ONE; +REGADENOSON 0.4 MG/5 ML SYRINGE IV PRN
--- NOTE | 2023-04-27 14:17 | NM ---
EXAMINATION TYPE: NM stress lexiscan cardiolite DATE OF EXAM: 04/27/2023 COMPARISON: NONE CLINICAL INDICATION: Female, 82 years old with history of R94.31 ABN EKG; TECHNIQUE: After the intravenous administration of 9.3 mCi Tc 99m Sestamibi - Cardiolite resting SPE CT images acquired 50 minutes post injection. The patient received 0.4mg Lexiscan, 25.2 mCi Tc 99m Sestamibi - Stress images obtained [address] injection FINDINGS: Review of stress and rest SPECT images demonstrates no distinct perfusion abnormality. Gated analysi s shows normal wall motion with an estimated left ventricular ejection fraction of 65 %. IMPRESSION: No scintigraphic evidence for reversible ischemia.
--- NOTE | 2023-04-27 18:39 | CA ---
Lexiscan Nuclear Stress Test Report Name: Patricia Paredes Exam Date: 04/27/2023 11:01 Exam Location: [place] Stress Ht (in): 62 Wt (lb): 145 BSA: 1.67 Ordering Phys: Oral Shepard MD Referring Phys: Devyn,, Technologist: DIONICIO,, Age: 82 Gender: F : 1940 Procedure CPT: Indications: R94.31 abn ekg ICD-10 Codes: Patient History: Abnormal EKG Medications: Meds past 24 hrs: Pretest Chest Pain: STRESS TEST Lexiscan Protocol Exercise Duration (min:sec): 02:[address] Depressions (mm): Angina Score: Tamez Score: Resting HR (bpm): 64 Peak HR (bpm): 88 Resting BP (mmHg): 174 / 79 Peak BP (mmHg): / 81 MPHR: 137 Target HR: 116 % MPHR: 64 METS: 1.0 Total Dose: Peak Dose: Atropine: Double Product: BP Response: Stress Termination: Infusion complete Stress Symptoms: No chest pain or symptoms Stress Summary: ECG ANALYSIS Resting ECG: Stress ECG: CONCLUSIONS RESTING EKG: Normal sinus rhythm, left bundle-branch block, Heart rate 61 BPM Patient recieved IV infusion of Lexiscan 0.4mg and at peak infusion STRESS EKG is nondiagnostic for ischemia due to resting left bundle-branch block ARRYTHMIAS: [No ectopic rhythms or sustained arrythmias] CONCLUSION: 1. Normal hemodynamic and heart response to Lexiscan infusion. 2. ECG is nondiagnostic for ischemia due to resting left bundle-branch block. 3. Nuclear perfusion imaging is reported separately by the radiology team. Please refer to that report for complete interpretation of this study. Dr Gadiel Kitchen (Electronically Signed) Final Date: 27 April 2023 18:38
== END | disposition home or self-care (01) ==
LOC: RADNMMAIN 08:48
PROVIDERS: ATTEND Family Medicine
DX: R94.31 Abnormal electrocardiogram [ECG] [EKG] (principal)
CPT/HCPCS: 93017; 78452; A9500; J2785

== ENCOUNTER → 2023-05-13 | Outpatient (CLI) | payer MEDICARE ==
--- NOTE | 2023-05-13 11:56 | CA ---
Transthoracic Echo Report Name: Patricia Paredes Age: 82 Gender: F : 1940 Exam Date: 05/13/2023 08:27 Exam Location: [facility] Echo Ht (in): 62 Wt (lb): 152 Ordering Physician: Oral Shepard MD Attending/Referring Phys: NELL, Devyn Mobile Marketing Manager Marielena Restrepo, LEONEL Procedure CPT: Indications: I10 Essential Hypertension Cardiac Hx: Technical Quality: Good Contrast 1: Total Dose (mL): Contrast 2: Total Dose (mL): MEASUREMENTS (Male / Female) Normal Values 2D ECHO LV Diastolic Diameter PLAX 4.9 cm 4.2 - 5.9 / 3.9 - 5.3 cm LV Systolic Diameter PLAX 3.6 cm IVS Diastolic Thickness 1.4 cm 0.6 - 1.0 / 0.6 - 0.9 cm LVPW Diastolic Thickness 1.4 cm 0.6 - 1.0 / 0.6 - 0.9 cm LV Relative Wall Thickness 0.6 RV Internal Dim ED PLAX 3.3 cm LA Systolic Diameter LX 4.3 cm 3.0 - 4.0 / 2.7 - 3.8 cm LV Diastolic Volume MOD BP 66.7 cm??? 67 - 155 / 56 - 104 cm??? LV Systolic Volume MOD BP 30.3 cm??? - / 19 - 49 cm??? LV Ejection Fraction MOD BP 54.6 % >= 55 % LV Cardiac Index MOD BP 1160.7 cm???/min???m??? LV Diastolic Volume MOD 4C 69.6 cm??? LV Systolic Volume MOD 4C 31.8 cm??? LV Ejection Fraction MOD 4C 54.3 % LV Cardiac Index MOD 4C 1205.3 cm???/min???m??? LV Diastolic Length 4C 7.4 cm LV Systolic Length 4C 6.3 cm LV Diastolic Volume MOD 2C 56.9 cm??? LV Systolic Volume MOD 2C 29.9 cm??? LV Ejection Fraction MOD 2C 47.4 % LV Cardiac Index MOD 2C 859.3 cm???/min???m??? LV Diastolic Length 2C 6.5 cm LV Systolic Length 2C 5.9 cm LA Volume 63.3 cm??? 18 - 58 / 22 - 52 cm??? M-MODE Aortic Root Diameter MM 3.1 cm MV E Point Septal Separation 0.8 cm AV Cusp Separation MM 1.9 cm DOPPLER AV Peak Velocity 231.0 cm/s AV Peak Gradient 21.3 mmHg AV Mean Velocity 154.0 cm/s AV Mean Gradient 10.5 mmHg AV Velocity Time Integral 55.9 cm LVOT Peak Velocity 102.3 cm/s LVOT Peak Gradient 4.2 mmHg MV Area PHT 2.7 cm??? Mitral E Point Velocity 95.9 cm/s Mitral A Point Velocity 117.0 cm/s Mitral E to A Ratio 0.8 MV Deceleration Time 279.4 ms MV E' Velocity 4.3 cm/s Mitral E to MV E' Ratio 22.6 TR Peak Velocity 288.2 cm/s TR Peak Gradient 33.2 mmHg Right Ventricular Systolic Press 37.4 mmHg FINDINGS Left Ventricle Left ventricular ejection fraction is estimated at 55-60 %. Left ventricular cavity size normal. Moderately increased septal wall thickness. Moderately increased posterior wall thickness. Mildly decreased left ventricular ejection fraction. Right Ventricle Mild right ventricular dilatation. Mild pulmonary hypertension. Right Atrium Normal right atrial size. Left Atrium Mildly increased left atrial diameter. Moderately increased left atrial volume. Mildly increased left atrial area. Mitral Valve Structurally normal mitral valve. Mitral annular calcification. Mild mitral regurgitation. Aortic Valve Trileaflet aortic valve. Aortic valve sclerosis. Mild aortic stenosis with a peak gradient of 21 mmHg and a mean gradient of 11 mmHg. Tricuspid Valve Structurally normal tricuspid valve. Mild tricuspid regurgitation. Pulmonic Valve Structurally normal pulmonic valve. Trace pulmonic regurgitation. Pericardium No pericardial effusion. Aorta Normal size aortic root and proximal ascending aorta. CONCLUSIONS Left ventricular ejection fraction 55-60% Moderately increased left ventricular wall thickness Moderately dilated left atrium Mild mitral regurgitation Mild aortic stenosis Mild tricuspid regurgitation RVSP 37 Previewed by: Dr. Manuel Santana DO (Electronically Signed) Final Date: 13 May 2023 11:54
== END | disposition home or self-care (01) ==
LOC: RADECHMAIN 08:13
PROVIDERS: ATTEND Family Medicine
DX: I10 Essential (primary) hypertension (principal); I08.3 Combined rheumatic disorders of mitral, aortic and tricuspid valves
CPT/HCPCS: 93306

== ENCOUNTER → 2023-12-26 | Outpatient (CLI) | payer MEDICARE ==
--- NOTE | 2023-12-26 11:56 | BD ---
EXAMINATION TYPE: Axial Bone Density DATE OF EXAM: 12/26/2023 CLINICAL HISTORY: 83 years old Female. ICD-10 CODE: Z78.0 ASYMPT MENOPAUSAL STATE Height: 6 Weight: 142 FRAX RISK QUESTIONS: Alcohol (3 or more units per day): no Family History (Parent hip fracture): no Glucocorticoids (More than 3mos): no (Ex: prednisone, prednisolone, methylprednisolone, dexamethasone, and hydrocortisone). History of Fracture in Adulthood: no Secondary Osteoporosis: 1. Type 1 Diabetes: no 2. Hyperthyroidism: no 3. Menopause before 45: yes 4. Malnutrition: no 5. Chronic liver disease: no Rheumatoid Arthritis: yes Current Tobacco Use: no RISK FACTORS HISTORY OF: Surgery to Spine/Hip(right/left)/Wrist (right/left): no EXAM MEASUREMENTS: Bone mineral densitometry was performed using the [employer] System. Bone mineral density as measured about the Lumbar spine is: ----- L1-L4(G/cm2): 1.273 T Score Values are as follows: ----- L1: 0.9 ----- L2: 0.6 ----- L3: 0.7 ----- L4: 0.8 ----- L1-L4: 0.8 Z Score Values are as follows: ----- L1: 2.9 ----- L2: 2.5 ----- L3: 2.6 ----- L4: 2.7 ----- L1-L4: 2.7 Bone mineral density has: increased 14.8 % since study of: 12.17.2021 Bone mineral density about the R hip (g/cm2): 0.957 Bone mineral density about the L hip (g/cm2): 0.950 T Score values are as follows: -----R Neck: -0.7 -----L Neck: -0.4 -----R Total: -0.4 -----L Total: -0.5 Z Score values are as follows: -----R Neck: 1.7 -----L Neck: 1.9 -----R Total: 1.8 -----L Total: 1.8 Bone mineral density has: increased 0.3 % since study of: 12.17.2021 FRAX%s: The graph provided illustrates a 13.4% chance for a major osteoporotic fx and a 2.9% chance f or the hips probability for fx in 10 years time. IMPRESSION: Normal (Values between +1 and -1 indicate normal bone mass). Consider repeating this study in 5 year s or sooner if there is some new clinical indication. NOTE: T-SCORE=SD OF THE YOUNG ADULT MEAN.
--- NOTE | 2023-12-27 18:52 | MM ---
Reason for Exam: Screening (asymptomatic). Last screening mammogram was performed 12 month(s) ago. Patient History: Menarche at age 13. First Full-Term at age 16. Right ovary removed at age 39. Hysterectomy at age 39. Postmenopausal. Estrogen for 5 years from age 39 until age 44. Progesterone for 5 years from age 39 until age 44. Core Biopsy on the Right side. Core Biopsy on the Left side. Excisional Biopsy on the Right side. Excisional Biopsy on the Left side. Excisional Biopsy on the Left side. Cyst Aspiration on the Left side. 01/31/1997, Benign Core Biopsy on the right side. Sister had breast cancer, age 40. Risk Values: Maggie 5 year model risk: 3.6%. NCI Lifetime model risk: 4.0%. Prior Study Comparison: 10/24/2020 Bilateral Screening Mammogram, [facility]. 12/17/2021 Bilateral Screening Mammogram, [facility]. 12/20/2022 Bilateral MG 3D screening mammo w/cad, [facility]. Tissue Density: There are scattered areas of fibroglandular density. Findings: Analyzed By CAD. There is no suspicious group of microcalcifications or new suspicious mass in either breast. Overall Assessment: Negative, BI-RAD 1 Management: Screening Mammogram of both breasts in 1 year. See note below in regards to patient's increased 5 year Maggie score. Patient should continue monthly self-breast exams. A clinical breast exam by your physician is recommended on an annual basis. This exam should not preclude additional follow-up of suspicious palpable abnormalities. Note on Maggie scores and lifetime risk: 1. A Maggie score greater than 3% is considered moderate risk. If this is the case, consider specialist referral to assess eligibility for a risk reducing agent. 2. If overall lifetime risk for the development of breast cancer is 20% or higher, the patient may qualify for future screening with alternating mammogram and breast MRI. Electronically signed and approved by: Yary Castellon M.D. Radiologist
== END | disposition home or self-care (01) ==
LOC: RADMAMWWP 09:06
PROVIDERS: ATTEND Family Medicine
DX: Z12.31 Encounter for screening mammogram for malignant neoplasm of breast (principal); Z80.3 Family history of malignant neoplasm of breast; Z78.0 Asymptomatic menopausal state
CPT/HCPCS: 77063; 77067; 77080; 93979

== ENCOUNTER → 2023-12-27 | Outpatient (CLI) | payer MEDICARE ==
--- NOTE | 2023-12-27 13:41 | US ---
EXAMINATION TYPE: US duplex aorta DATE OF EXAM: 12/27/2023 COMPARISON: 07/16/2022. CLINICAL INDICATION: Female, 83 years old with history of I71.40 ABD AORTIC ANEURYSM; AAA TECHNIQUE: Multiple sonographic images of the abdominal aorta are obtained. FINDINGS: EXAM MEASUREMENTS: Abdominal Aorta: Proximal: 2.3 x 2.4 cm Mid: 2.2 x 2.8 cm Distal: 1.9 x 1.4 cm Bifurcation: Right Iliac: 1.2 cm Left Iliac: 1.2 cm IMPRESSION: No evidence of aortic aneurysm.
== END | disposition home or self-care (01) ==
LOC: RADUSWWP 09:02
PROVIDERS: ATTEND Family Medicine
DX: I71.40 Abdominal aortic aneurysm, without rupture, unspecified (principal)
CPT/HCPCS: 93979

== ENCOUNTER 2024-06-14 13:54 | Emergency (ER) | payer MEDICARE ==
[2024-06-14 14:09] VITALS: RESP 16
--- NOTE | 2024-06-14 14:35 | ED ---
Fall HPI - General Chief Complaint: Fall Stated Complaint: Fall Time Seen by Provider: 06/14/24 14:10 Source: patient, RN notes reviewed Mode of arrival: ambulatory - History of Present Illness Initial Comments: 83-year-old female presents emergency department chief complaint of a fall earlier today. States that she was at [employer] when she was carrying 2 chairs and believes that her ankle twisted causing her to fall onto the left side. Patient states that she did hit the back of her head however denies losing consciousness. States that she has a mild pain in the back of her head and headache as to where she hit her head. She endorses mild nausea as well. Denies blood thinner use. Last tetanus vaccination was approximately 10 years ago. - Related Data Home Medications Medication Instructions Recorded Confirmed Cholecalciferol [Vitamin D3 (25 2,000 unit PO DAILY 07/28/15 02/09/23 Mcg = 1000 Iu)] Fenofibric Acid (Choline) 135 mg PO DAILY 07/28/15 02/09/23 [Trilipix] Multivitamins, Thera [Multivitamin 1 tab PO DAILY 09/22/16 02/09/23 (formulary)] Metoprolol Tartrate [Lopressor] 50 mg PO BID 09/18/17 02/09/23 Albuterol Inhaler [Ventolin Hfa 2 puff INHALATION RT-QID PRN 11/11/20 02/09/23 Inhaler] Fluticasone/Umeclidin/Vilanter 1 puff INHALATION DAILY 02/04/23 02/09/23 [Trelegy Ellipta 100-62.5-25] Previous Rx's Medication Instructions Recorded Acetaminophen Tab [Tylenol] 650 mg PO Q4HR PRN #30 tab 11/14/20 Ascorbic Acid [Vitamin C] 1,000 mg PO DAILY 30 Days #60 tab 11/14/20 Zinc Sulfate [Orazinc] 220 mg PO DAILY 30 Days #30 cap 11/14/20 Allergies Allergy/AdvReac Type Severity Reaction Status Date / Time ciprofloxacin [From Cipro] Allergy Swelling Verified 06/14/24 14:06 ciprofloxacin HCl Allergy Swelling Verified 06/14/24 14:06 [From Cipro] ezetimibe [From Vytorin] Allergy Unknown Verified 06/14/24 14:06 iodine Allergy Unknown Verified 06/14/24 14:06 latex Allergy red skin Verified 06/14/24 14:06 Penicillins Allergy Rash/Hives Verified 06/14/24 14:06 Quinolones Allergy Unknown Verified 06/14/24 14:06 simvastatin [From Vytorin] Allergy Unknown Verified 06/14/24 14:06 Sulfa (Sulfonamide Allergy Itching Verified 06/14/24 14:06 Antibiotics) codeine AdvReac Nausea & Verified 06/14/24 14:06 Vomiting & Diarrhea bandaid Allergy Unknown Uncoded 06/14/24 14:06 Review of Systems ROS Statement: Those systems with pertinent positive or pertinent negative responses have been documented in the HPI. ROS Other: All systems not noted in ROS Statement are negative. Past Medical History Past Medical History: COPD, Hyperlipidemia, Hypertension, Pulmonary Embolus (PE) Additional Past Medical History / Comment(s): vertigo, arthritis, kidney stones, covid History of Any Multi-Drug Resistant Organisms: None Reported Past Surgical History: Appendectomy, Back Surgery, Breast Surgery, Cholecystectomy, Hysterectomy Additional Past Surgical History / Comment(s): benign cyst from breast, fatty tumor removed lt shoulder Past Anesthesia/Blood Transfusion Reactions: No Reported Reaction Additional Past Anesthesia/Blood Transfusion Reaction / Comment(s): claustrophobic Past Psychological History: Anxiety Smoking Status: Former smoker Past Alcohol Use History: None Reported Past Drug Use History: None Reported - Past Family History Sister(s) Family Medical History: Cancer Additional Family Medical History / Comment(s): breast cancer General Exam Limitations: no limitations General appearance: alert, in no apparent distress Head exam: Present: other (posterior scalp hematoma 3 cm, no active bleeding or laceration noted) Eye exam: Present: normal appearance, PERRL, EOMI. Absent: scleral icterus, conjunctival injection, periorbital swelling ENT exam: Present: normal exam, mucous membranes moist Neck exam: Present: normal inspection. Absent: tenderness, meningismus, lymphadenopathy Respiratory exam: Present: normal lung sounds bilaterally. Absent: respiratory distress, wheezes, rales, rhonchi, stridor Cardiovascular Exam: Present: regular rate, normal rhythm, normal heart sounds. Absent: systolic murmur, diastolic murmur, rubs, gallop, clicks GI/Abdominal exam: Present: soft, normal bowel sounds. Absent: distended, tenderness, guarding, rebound, rigid Left Forearm Wrist exam: Present: full ROM, tenderness, other (multiple skin tears noted over the arm, no active bleeding) Hand Wrist exam: Present: normal inspection, full ROM Neuro motor exam: Present: wrist extension intact, thumb opposition intact, thumb IP flexion intact, thumb adduction intact Vascular: Present: normal capillary refill, radial pulse (2+). Absent: vascular compromise Right Hand Wrist exam: Present: other (skin tear over the dorsum of hand 3 cm ) Vascular: Present: normal capillary refill, radial pulse (2+). Absent: vascular compromise Back exam: Present: normal inspection Neurological exam: Present: alert, oriented X3, CN II-XII intact Skin exam: Present: warm, dry, intact, normal color. Absent: rash Course Vital Signs 06/14/24 14:06 Temperature 98.4 F Pulse Rate 73 Respiratory 16 Rate Blood Pressure 181/69 O2 Sat by Pulse 98 Oximetry Medical Decision Making - Medical Decision Making Was pt. sent in by a medical professional or institution (, PA, SHINGLE SHEARING MACHINE OPERATOR, urgent care, hospital, or halfway...) When possible be specific @ -No Did you speak to anyone other than the patient for history (EMS, parent, family, police, friend...)? What history was obtained from this source @ -No Did you review nursing and triage notes (agree or disagree)? Why? @ -I reviewed and agree with nursing and triage notes Were old charts reviewed (outside hosp., previous admission, EMS record, old EKG, old radiological studies, urgent care reports/EKG's, halfway records)? Report findings @ -No old charts were reviewed Differential Diagnosis (chest pain, altered mental status, abdominal pain women, abdominal pain men, vaginal bleeding, weakness, fever, dyspnea, syncope, headache, dizziness, GI bleed, back pain, seizure, CVA, palpatations, mental health, musculoskeletal)? @ -Contusion, concussion, subdural hematoma, intracranial hemorrhage, skin tear, laceration, this list is not all inclusive EKG interpreted by me (3pts min.). @ -None X-rays interpreted by me (1pt min.). @ -None done CT interpreted by me (1pt min.). @ -CT of the brain and C-spine reveals no evidence of acute intracranial process with no evidence of cervical spine fracture and a small right parietal scalp contusion U/S interpreted by me (1pt. min.). @ -None done What testing was considered but not performed or refused? (CT, X-rays, U/S, labs)? Why? @ -None What meds were considered but not given or refused? Why? @ -None Did you discuss the management of the patient with other professionals (professionals i.e. , PA, SHINGLE SHEARING MACHINE OPERATOR, lab, RT, psych nurse, bilingual social worker, molding technician, teacher, community service officer, shoe caser)? Give summary @ -No Was smoking cessation discussed for >3mins.? @ -No Was critical care preformed (if so, how long)? @ -No Were there social determinants of health that impacted care today? How? (Homelessness, low income, unemployed, alcoholism, drug addiction, transportation, low edu. Level, literacy, decrease access to med. care, [facility], rehab)? @ -No Was there de-escalation of care discussed even if they declined (Discuss DNR or withdrawal of care, Hospice)? DNR status @ -No What co-morbidities impacted this encounter? (DM, HTN, Smoking, COPD, CAD, Cancer, CVA, ARF, Chemo, Hep., AIDS, mental health diagnosis, sleep apnea, morbid obesity)? @ -None Was patient admitted / discharged? Hospital course, mention meds given and route, prescriptions, significant lab abnormalities, going to OR and other pertinent info. @ -Discharge. 83-year-old female presenting after fall. On evaluation patient noted to have a hematoma to the posterior right scalp with no evidence of laceration or skin injury. Patient is neuro vas intact with no acute neurological deficits on examination. There is abrasion/skin tears noted over the left forearm and over the right hand with no active bleeding. Patient is provided with tetanus vaccination. CT negative for acute process intracranial and cervical spine. Skin tears are cleansed and Steri-Strips placed over top. Discussed with Dr. Farnsworth Undiagnosed new problem with uncertain prognosis? @ -No Drug Therapy requiring intensive monitoring for toxicity (Heparin, Nitro, Insulin, Cardizem)? @ -No Were any procedures done? @ -No Diagnosis/symptom? @ -fall, skin tear, scalp hematoma Acute, or Chronic, or Acute on Chronic? @ -Acute Uncomplicated (without systemic symptoms) or Complicated (systemic symptoms)? @ -uncomplicated Side effects of treatment? @ -No Exacerbation, Progression, or Severe Exacerbation? @ -No Poses a threat to life or bodily function? How? (Chest pain, [place], [place], pneumonia, PE, COPD, DKA, ARF, appy, cholecystitis, CVA, Diverticulitis, Homicidal, Suicidal, threat to staff... and all critical care pts) @ -No Disposition Clinical Impression: Fall, Skin tear, Headache Disposition: HOME SELF-CARE Condition: Good Instructions (If sedation given, give patient instructions): Fall Prevention for Older Adults (ED) Additional Instructions: Please return to the Emergency Department if symptoms worsen or any other concerns. Is patient prescribed a controlled substance at d/c from ED?: No Referrals: Oral Shepard MD [Primary Care Provider] - 1-2 days Time of Disposition: 16:05
--- NOTE | 2024-06-14 15:51 | CT ---
EXAMINATION TYPE: CT brain cspine wo con CT DLP: 1302 mGycm, Automated exposure control for dose reduction was used. DATE OF EXAM: 06/14/2024 3:44 PM COMPARISON: None.. CLINICAL INDICATION:Female, 83 years old with history of fall, bump on head, mild [place], nausea; fell to day hit back of head TECHNIQUE: Brain: Multiple axial CT images of the brain were obtained without IV contrast. Cspine: Axial CT images from the skull base to the inferior aspect of T2 we obtained without intraven ous contrast. Coronal and sagittal reformatted images were also reviewed. FINDINGS: Brain: Extra-axial spaces: No abnormal extra-axial fluid collections. Ventricular system: Within normal limits Cerebral parenchyma: Age-appropriate cerebral volume loss. Hyperdensity identified within the left po ns (series 2031, image 62). Most consistent with calcification. No definitive intraparenchymal hemorr vicki. The brown-white junction is well differentiated. Scattered hypoattenuating areas are seen within the periventricular white matter. Indication identified within the cayla. Cerebellum: Unremarkable. Mass effect: No evidence of midline shift. Intracranial vasculature: Atherosclerotic calcifications of the intracranial vessels. Soft tissues: Small right parietal scalp contusion. Calvarium/osseous structures: No depressed skull fracture. Paranasal sinuses and mastoid air cells: Mild scattered mucosal thickening and or secretions. Visualized orbits: Bilateral aphakia Cervical spine: Fracture: None. Osseous structures: Multilevel degenerative disc disease changes with endplate spurring and disc oste ophyte complex's. Vertebral alignment: Within normal limits. Spinal canal/Neural Foramina: Disc osteophyte complexes at C3-C4 and C5-C6 with at least mild spinal canal stenosis. Facet joint uncovertebral joint arthropathy scattered throughout the cervical spine w ith varying degrees of neural foraminal stenosis. Neck soft tissues: Prevertebral soft tissues are within normal limits. Other: The airway is patent. The lung apices are clear. Bilateral carotid bulb calcifications. IMPRESSION: 1. No acute intracranial process. 2. Nonspecific white matter changes, likely secondary to chronic small vessel ischemic disease. 3. No evidence of cervical spine fracture. 4. Mild to moderate multilevel degenerative disc disease. 5. Small right parietal scalp contusion. [facility], , 06/14/2024 3:49 PM
[2024-06-14] MEDS: DIPH,PERTUS(ACELL)TETVAC-LF 0.5 ML VIAL IM ONE (16:30)
[2024-06-14 17:25] VITALS: BP 210/71; PULSE 78; TEMP 98
== END 2024-06-14 17:28 | disposition home or self-care (01) ==
LOC: EC 13:54
CPT/HCPCS: 70450; 72125; 90471; 90715; 99284

== ENCOUNTER 2024-06-29 09:38 | Emergency (ER) | payer MEDICARE ==
[2024-06-29 09:47] VITALS: BP 194/73; PULSE 64; RESP 16; TEMP 97.8
--- NOTE | 2024-06-29 10:21 | ED ---
General Adult HPI - General Chief complaint: Extremity Problem,Nontraumatic Stated complaint: poss DVT Time Seen by Provider: 06/29/24 09:55 Source: patient, RN notes reviewed, old records reviewed Mode of arrival: ambulatory Limitations: no limitations - History of Present Illness Initial comments: This is an 83-year-old female who presents to the emergency department complaining that her left foot feels cold to her since yesterday. Patient states it is a little tingly as well. Patient denies any injury or trauma patient has any swelling patient denies any edema patient denies any redness or wounds. Patient states she had a history of blood clots but she is not on any blood thinners. Patient states she has had no shortness of breath or chest pain. Patient states she came in because she went to make sure she did not have a blood clot. - Related Data Home Medications Medication Instructions Recorded Confirmed Cholecalciferol [Vitamin D3 (25 2,000 unit PO DAILY 07/28/15 02/09/23 Mcg = 1000 Iu)] Fenofibric Acid (Choline) 135 mg PO DAILY 07/28/15 02/09/23 [Trilipix] Multivitamins, Thera [Multivitamin 1 tab PO DAILY 09/22/16 02/09/23 (formulary)] Metoprolol Tartrate [Lopressor] 50 mg PO BID 09/18/17 02/09/23 Albuterol Inhaler [Ventolin Hfa 2 puff INHALATION RT-QID PRN 11/11/20 02/09/23 Inhaler] Fluticasone/Umeclidin/Vilanter 1 puff INHALATION DAILY 02/04/23 02/09/23 [Trelegy Ellipta 100-62.5-25] Previous Rx's Medication Instructions Recorded Acetaminophen Tab [Tylenol] 650 mg PO Q4HR PRN #30 tab 11/14/20 Ascorbic Acid [Vitamin C] 1,000 mg PO DAILY 30 Days #60 tab 11/14/20 Zinc Sulfate [Orazinc] 220 mg PO DAILY 30 Days #30 cap 11/14/20 Allergies Allergy/AdvReac Type Severity Reaction Status Date / Time ciprofloxacin [From Cipro] Allergy Swelling Verified 06/29/24 09:47 ciprofloxacin HCl Allergy Swelling Verified 06/29/24 09:47 [From Cipro] ezetimibe [From Vytorin] Allergy Unknown Verified 06/29/24 09:47 iodine Allergy Unknown Verified 06/29/24 09:47 latex Allergy red skin Verified 06/29/24 09:47 Penicillins Allergy Rash/Hives Verified 06/29/24 09:47 Quinolones Allergy Unknown Verified 06/29/24 09:47 simvastatin [From Vytorin] Allergy Unknown Verified 06/29/24 09:47 Sulfa (Sulfonamide Allergy Itching Verified 06/29/24 09:47 Antibiotics) codeine AdvReac Nausea & Verified 06/29/24 09:47 Vomiting & Diarrhea bandaid Allergy Unknown Uncoded 06/14/24 14:06 Review of Systems ROS Statement: Those systems with pertinent positive or pertinent negative responses have been documented in the HPI. ROS Other: All systems not noted in ROS Statement are negative. Past Medical History Past Medical History: COPD, Hyperlipidemia, Hypertension, Pulmonary Embolus (PE) Additional Past Medical History / Comment(s): vertigo, arthritis, kidney stones, covid History of Any Multi-Drug Resistant Organisms: None Reported Past Surgical History: Appendectomy, Back Surgery, Breast Surgery, Cholecystectomy, Hysterectomy Additional Past Surgical History / Comment(s): benign cyst from breast, fatty tumor removed lt shoulder Past Anesthesia/Blood Transfusion Reactions: No Reported Reaction Additional Past Anesthesia/Blood Transfusion Reaction / Comment(s): claustrophobic Past Psychological History: Anxiety Smoking Status: Former smoker Past Alcohol Use History: None Reported Past Drug Use History: None Reported - Past Family History Sister(s) Family Medical History: Cancer Additional Family Medical History / Comment(s): breast cancer General Exam - General Exam Comments Initial Comments: GENERAL Patient is well-developed and well-nourished. Patient is in mild distress. EYES Patient's pupils are equal and round. Extraocular motion is intact SKIN Unremarkable NEURO The patient is alert and oriented A&Ox3 PYSCH Patient has normal interpersonal interactions. MUSCULOSKELETAL Patient has good DP pulses on the left the patient's foot is not cold when I compared to the right. There is no swelling there is no calf tenderness there is no redness. Limitations: no limitations Course Vital Signs 06/29/24 09:44 Temperature 97.8 F Pulse Rate 64 Respiratory 16 Rate Blood Pressure 194/73 O2 Sat by Pulse 99 Oximetry Medical Decision Making - Medical Decision Making Was pt. sent in by a medical professional or institution (, PA, HOUSE MOVER HELPER, urgent care, hospital, or intermediate...) When possible be specific @ -No Did you speak to anyone other than the patient for history (EMS, parent, family, police, friend...)? What history was obtained from this source @ -No Did you review nursing and triage notes (agree or disagree)? Why? @ -I reviewed and agree with nursing and triage notes Were old charts reviewed (outside hosp., previous admission, EMS record, old EKG, old radiological studies, urgent care reports/EKG's, intermediate records)? Report findings @ -No old charts were reviewed Differential Diagnosis? @ -DVT, arterial occlusion, neuropathy, cellulitis, this is not an all-inclusive list EKG interpreted by me (3pts min.). @ -As above X-rays interpreted by me (1pt min.). @ -None done CT interpreted by me (1pt min.). @ -None done U/S interpreted by me (1pt. min.). @ -Ultrasound of the leg shows no DVT What testing was considered but not performed or refused? (CT, X-rays, U/S, labs)? Why? @ -None What meds were considered but not given or refused? Why? @ -None Did you discuss the management of the patient with other professionals (professionals i.e. , DONAL, HOUSE MOVER HELPER, lab, RT, psych nurse, professor of social work, structural steel fitter, teacher, chief diversity officer, pillowcase sewer)? Give summary @ -No Was smoking cessation discussed for >3mins.? @ -No Was critical care preformed (if so, how long)? @ -No Were there social determinants of health that impacted care today? How? (Homelessness, low income, unemployed, alcoholism, drug addiction, transportation, low edu. Level, literacy, decrease access to med. care, penitentiary, rehab)? @ -No Was there de-escalation of care discussed even if they declined (Discuss DNR or withdrawal of care, Hospice)? DNR status @ -No What co-morbidities impacted this encounter? (DM, HTN, Smoking, COPD, CAD, Cancer, CVA, ARF, Chemo, Hep., AIDS, mental health diagnosis, sleep apnea, morbid obesity)? @ -None Was patient admitted / discharged? Hospital course, mention meds given and route, prescriptions, significant lab abnormalities, going to OR and other per tinent info. @ -I went back and reevaluated the patient and she stated that the tingling in her foot is gone now. She states it still feels a little cold but she is can a follow-up with her primary medical care doctor Undiagnosed new problem with uncertain prognosis? @ -No Drug Therapy requiring intensive monitoring for toxicity (Heparin, Nitro, Insulin, Cardizem)? @ -No Were any procedures done? @ -No Diagnosis/symptom? @ -Neuropathy foot Acute, or Chronic, or Acute on Chronic? @ -Acute Uncomplicated (without systemic symptoms) or Complicated (systemic symptoms)? @ -Uncomplicated Side effects of treatment? @ -No Exacerbation, Progression, or Severe Exacerbation? @ -No Poses a threat to life or bodily function? How? (Chest pain, USA, [place], pneumonia, PE, COPD, DKA, ARF, appy, cholecystitis, CVA, Diverticulitis, Homicidal, Suicidal, threat to staff... and all critical care pts) @ -No Disposition Clinical Impression: Neuropathy of foot Disposition: HOME SELF-CARE Condition: Good Instructions (If sedation given, give patient instructions): Peripheral Neuropathy (ED) Is patient prescribed a controlled substance at d/c from ED?: No Referrals: Oral Shepard MD [Primary Care Provider] - 1-2 days Time of Disposition: 12:41
--- NOTE | 2024-06-29 12:38 | US ---
EXAMINATION TYPE: US venous doppler duplex LE LT DATE OF EXAM: 06/29/2024 11:12 AM COMPARISON: NONE CLINICAL INDICATION: Female, 83 years old with history of Cold foot, history of blood clots; , Pain, Swelling TECHNIQUE: The lower extremity deep venous system is examined utilizing real time linear array sonog ángel with graded compression, color doppler sonography, and spectral doppler. SIDE PERFORMED: FINDINGS: VESSELS IMAGED: Common Femoral Vein Deep Femoral Vein Greater Saphenous Vein * Femoral Vein Popliteal Vein Small Saphenous Vein * Proximal Calf Veins (* superficial vessels) Left Leg: Negative for DVT, Color Doppler imaging shows patency of the vessels. Spectral waveforms a re within normal limits. IMPRESSION: No ultrasound evidence for deep venous thrombosis. [facility], , 06/29/2024 12:36 PM
== END 2024-06-29 13:03 | disposition home or self-care (01) ==
LOC: EC 09:38
DX: G57.92 Unspecified mononeuropathy of left lower limb (principal); Z87.891 Personal history of nicotine dependence; Z88.0 Allergy status to penicillin; Z88.1 Allergy status to other antibiotic agents; Z88.2 Allergy status to sulfonamides; Z88.8 Allergy status to other drugs, medicaments and biological substances; Z91.040 Latex allergy status; Z91.041 Radiographic dye allergy status; Z88.5 Allergy status to narcotic agent
CPT/HCPCS: 99283

== ENCOUNTER → 2025-02-19 | Outpatient (CLI) | payer MEDICARE ==
--- NOTE | 2025-02-19 18:12 | MM ---
Reason for Exam: Screening (asymptomatic). Last mammogram was performed 1 year(s) and 2 month(s) ago. Patient History: Menarche at age 13. First Full-Term at age 16. Right ovary removed at age 39. Hysterectomy at age 39. Postmenopausal. Estrogen for 5 years from age 39 until age 44. Progesterone for 5 years from age 39 until age 44. Core Biopsy on the Right side. Core Biopsy on the Left side. Excisional Biopsy on the Right side. Excisional Biopsy on the Left side. Excisional Biopsy on the Left side. Cyst Aspiration on the Left side. 01/31/1997, Benign Core Biopsy on the right side. Sister had breast cancer, age 40. Risk Values: Maggie 5 year model risk: 3.3%. NCI Lifetime model risk: 3.3%. Prior Study Comparison: 12/17/2021 Bilateral Screening Mammogram, [facility]. 12/20/2022 Bilateral MG 3D screening mammo w/cad, [facility]. 12/26/2023 Bilateral MG 3D screening mammo w/cad, [facility]. Tissue Density: There are scattered areas of fibroglandular density. Findings: Analyzed By CAD. Focal asymmetry anterior upper quadrant left breast remains unchanged. A few scattered benign oil cyst calcifications are redemonstrated. There is no suspicious group of microcalcifications or new suspicious mass in either breast. Overall Assessment: Benign, BI-RAD 2 Management: Screening Mammogram of both breasts in 1 year. See note below in regards to the patient's increased 5 year Maggie score. Patient should continue monthly self-breast exams. A clinical breast exam by your physician is recommended on an annual basis. This exam should not preclude additional follow-up of suspicious palpable abnormalities. Note on Maggie scores and lifetime risk: 1. A Maggie score greater than 3% is considered moderate risk. If this is the case, consider specialist referral to assess eligibility for a risk reducing agent. 2. If overall lifetime risk for the development of breast cancer is 20% or higher, the patient may qualify for future screening with alternating mammogram and breast MRI. [facility], , 02/19/2025 6:09 PM. Electronically signed and approved by: Yary Castellon M.D. Radiologist
== END | disposition home or self-care (01) ==
LOC: RADMAMWWP 13:35
PROVIDERS: ATTEND Family Medicine
DX: Z12.31 Encounter for screening mammogram for malignant neoplasm of breast (principal); R92.323 Mammographic fibroglandular density, bilateral breasts; Z78.0 Asymptomatic menopausal state; Z80.3 Family history of malignant neoplasm of breast
CPT/HCPCS: 77063; 77067